=== PATIENT | male | born 1970 | race African-American/Black ===

== ENCOUNTER → 2018-09-10 | Outpatient (CLI) | payer OTHER ==
--- NOTE | 2018-09-10 08:59 | RAD ---
3 views left knee 09/10/2018 12:00 AM Indication: Knee pain. Possible patellar tendinitis Comparison: None Findings: There is no acute fracture or dislocation. Articular surfaces are uninterrupted and smooth. There is an enthesophyte at the insertion of the patellar tendon on the superior patella noted. Soft tissues are unremarkable. Impression: 1. No evidence of acute osseous abnormality. 2. Enthesophyte at the insertion of the patellar tendon on the superior patella. This is of uncertain clinical significance. Correlate with clinical evidence of patellar enthesopathy Electronically signed by: Asaf Mercer MD (09/10/2018 8:56 AM) [id number]
== END | disposition home or self-care (01) ==
LOC: DXRAD 07:33
PROVIDERS: ATTEND Physician Assistant Medical
DX: M76.52 Patellar tendinitis, left knee (principal); M76.892 Other specified enthesopathies of left lower limb, excluding foot
CPT/HCPCS: 73562

== ENCOUNTER 2019-04-27 18:20 | Emergency (ER) | payer OTHER ==
[~2019-04-27] VITALS: Ht 190.5 cm; Wt 91.9 kg
[2019-04-27] MEDS ORDERED: IV RINGERS SOLUTION,LACTATED 1,000 ML IV SCH (18:24)
[2019-04-27] MEDS ORDERED: ASPIRIN 81 MG TAB.CHEW PO ONE (18:30)
[2019-04-27] MEDS ORDERED: FAMOTIDINE 20 MG/2 ML VIAL IVP ONE (18:30)
[2019-04-27 18:54] LABS: BASO # 0.1 x10^3/uL (0.0-0.2); BASO % 1 % (0-3); EOS # 0.1 x10^3/uL (0.0-0.7); EOS % 2 % (0-3); HEMATOCRIT 46.7 % (39.0-53.0); HEMOGLOBIN 14.6 g/dL (13.0-17.5); LYMPH # 3.3 x10^3/uL (1.0-4.8); LYMPH % 52 % (24-48); MEAN CORPUSCULAR HEMOGLOBIN 21 pg (25-35); MEAN CORPUSCULAR HGB CONC 31 g/dL (31-37); MEAN CORPUSCULAR VOLUME 66 fL (79-100); MONO # 0.6 x10^3/uL (0.0-1.1); MONO % 9 % (0-9); NEUT # 2.3 x10^3uL (1.8-7.7); NEUT % 37 % (31-73); PLATELET COUNT 240 x10^3/uL (140-400); RED BLOOD COUNT 7.08 x10^6/uL (4.30-5.70); RED CELL DISTRIBUTION WIDTH 16.7 % (11.5-14.5); WHITE BLOOD COUNT 6.3 x10^3/uL (4.0-11.0)
--- NOTE | 2019-04-27 19:04 | PHYS DOC ---
Past History Past Medical History: Anemia, Diabetes, GERD Past Surgical History: No Surgical History Additional Smoking Information: PACK/DAY Alcohol Use: Rarely Adult General Chief Complaint Chief Complaint: WEAKNESS/GENERALIZED'.. I messed my meals.. I drank a spite.. feel a little better.. just emmanuel weak.. and dizzy.. " HPI HPI Patient is a 48 year old male who presents with above hx and complaints of generalized weakness. Pt. is know diabetic and smoker. Recent change in diabetic meds.. Pt. did missed regular meals to day. No travel or specific ill contacts follows with Kathryn for care. Pt. does continue to smoke. Review of Systems Review of Systems Constitutional: Denies fever or chills [] Eyes: Denies change in visual acuity, redness, or eye pain [] HENT: Denies nasal congestion or sore throat [] Respiratory: Denies cough or shortness of breath [] Cardiovascular: No additional information not addressed in HPI [] GI: Denies abdominal pain, , vomiting, bloody stools or diarrhea []Complaints of nausea : Denies dysuria or hematuria [] Musculoskeletal: Denies back pain or joint pain [] Integument: Denies rash or skin lesions [] Neurologic: Denies headache, focal weakness or sensory changes []Complaints of generalized weakness Endocrine: Denies polyuria or polydipsia [] All other systems were reviewed and found to be within normal limits, except as documented in this note. Family History Family History DM Current Medications Current Medications Current Medications Medications (Trade) Dose Ordered Sig/Bogdan Start Time Stop Time Status Last Admin Dose Admin Aspirin (Children'S Aspirin) 324 mg 1X ONCE 04/27/19 18:30 04/27/19 18:31 DC Famotidine (Pepcid Vial) 20 mg 1X ONCE 04/27/19 18:30 04/27/19 18:31 DC Lactated Ringer's 1,000 ml @ 1,000 mls/hr Q1H 04/27/19 18:24 04/27/19 19:23 Allergies Allergies Allergies Coded Allergies Type Severity Reaction Last Updated Verified No Known Drug Allergies 04/27/19 No Physical Exam Physical Exam Constitutional: Mild distress, non-toxic appearance. [] HENT: Normocephalic, atraumatic, bilateral external ears normal, oropharynx dry, no oral exudates, nose normal. [] Eyes: PERRLA, EOMI, conjunctiva normal, no discharge. [] Neck: Normal range of motion, no tenderness, supple, no stridor. [] Cardiovascular: Tachycardia Heart rate regular rhythm, no murmur [] Lungs & Thorax: Bilateral breath sounds clear to auscultation [] Abdomen: Bowel sounds normal, soft, no tenderness, no masses, no pulsatile masses. [] Skin: Warm, dry, no erythema, no rash. [] Back: No tenderness, no CVA tenderness. [] Extremities: No tenderness, no cyanosis, no clubbing, ROM intact, no edema. [] Neurologic: Alert and oriented X 3, normal motor function, normal sensory function, no focal deficits noted. []DTRs +2 patella and brachial. No drift. Supervisor Yard equal. Right-hand dominant. Psychologic: Affect anxious, judgement normal, mood normal. [] Current Patient Data Vital Signs Vital Signs Date Time Temp Pulse Resp B/P (MAP) Pulse Ox O2 Delivery O2 Flow Rate FiO2 04/27/19 18:20 97.8 82 20 153/91 (111) 97 Room Air EKG EKG My interpretation EKG shows a sinus rhythm at 85 bpm. No findings of acute morphology with STEMI. with contralateral changes.[] Radiology/Procedures Radiology/Procedures [[address] [address] IMAGING REPORT Signed PATIENT: TRENTON AGUILLON ACCOUNT: [id number] : 1970 LOCATION: ER AGE: 48 SEX: M EXAM STATUS: REG ER ORD. PHYSICIAN: NICOLE MATAMOROS MD REASON: dizzy, weak, numbness PROCEDURE: CT HEAD WO CONTRAST Exam: CT head INDICATION: Dizzy, weak, numbness TECHNIQUE: Sequential axial images through the head were obtained without the administration of IV contrast. Comparisons: None FINDINGS: No focal parenchymal lesion or hemorrhage is identified. There is no midline shift or sulcal effacement. No acute vascular territory infarction is identified. Michele-white distinction is preserved. The ventricular system is within normal limits without compression hydrocephalus. The basal cisterns are well maintained. The visualized portions of the paranasal sinuses and mastoid air cells are well-pneumatized. No acute fractures. IMPRESSION: No acute intracranial abnormality. Exposure: One or more of the following in the visualized dose reduction techniques were utilized for this examination: 1. Automated exposure control 2. Adjustment of the MA and/or KV according to patient size Use of iterative of reconstructive technique Electronically signed by: Nnamdi Hollis MD (04/27/2019 7:32 PM) [id number] DICTATED AND SIGNED BY: NNAMDI HOLLIS MD DATE: 04/27/191931 CC: NICOLE MATAMOROS MD; EILEEN SIBLEY ~][place] [address] IMAGING REPORT Signed PATIENT: TRENTON AGUILLON ACCOUNT: [id number] : 1970 LOCATION: ER AGE: 48 SEX: M EXAM STATUS: REG ER ORD. PHYSICIAN: NICOLE MATAMOROS MD REASON: ??dizzy PROCEDURE: CHEST PA & LATERAL EXAM: CHEST PA LATERAL INDICATION: Dizziness. TECHNIQUE: PA and lateral views COMPARISON: None FINDINGS: The heart size is normal. The great vessels appear unremarkable. There is no hilar or mediastinal mass. The lungs are clear. There is no pleural effusion or pneumothorax. There are no significant osseous abnormalities. Mild left diaphragmatic elevation. IMPRESSION: No active cardiopulmonary disease. Electronically signed by: Namrata Bettencourt MD (04/27/2019 7:42 PM) [facility] DICTATED AND SIGNED BY: NAMRATA BETTENCOURT MD DATE: 04/27/191941 CC: NICOLE MATAMOROS MD; EILEEN SIBLEY ~ Course & Med Decision Making Course & Med Decision Making Pertinent Labs and Imaging studies reviewed. (See chart for details) Patient take a daily baby aspirin. Patient take diabetic meds as scheduled times. Patient take meals at scheduled times. Patient take multivitamin with iron. Patient follow-up primary care. Patient return if any concerns. Patient strongly encouraged to stop smoking. Pt declines admission at this time. Impression: 1. Weakness 2. Dizziness 3. Diabetes 4. Tobacco use 5. Mild dehydration 6. Hypoglycemic episode 7. Microcytic hypochromic indices 8. Suspect pt had hypoglycemic episode. [] Dragon Disclaimer Dragon Disclaimer This electronic medical record was generated, in whole or in part, using a voice recognition dictation system. Departure Departure: Disposition: 01 HOME/RESIDENCE PRIOR TO ADM Condition: STABLE Referrals: EILEEN SIBLEY (PCP) Dragon Disclaimer This chart was dictated in whole or in part using Voice Recognition software in a busy, high-work load, and often noisy Emergency Department environment. It may contain unintended and wholly unrecognized errors or omissions. Dragon Disclaimer This chart was dictated in whole or in part using Voice Recognition software in a busy, high-work load, and often noisy Emergency Department environment. It may contain unintended and wholly unrecognized errors or omissions. NICOLE MATAMOROS MD Apr 27, 2019 19:04
[2019-04-27 19:07] VITALS: BP 128/83
[2019-04-27 19:07] LABS: ANION GAP 13 (6-14); BLOOD UREA NITROGEN 16 mg/dL (8-26); CALCIUM 9.8 mg/dL (8.5-10.1); CARBON DIOXIDE 26 mmol/L (21-32); CHLORIDE 101 mmol/L (98-107); CREATININE 1.1 mg/dL (0.7-1.3); GFR 87.2; GLUCOSE 123 mg/dL (70-99); POTASSIUM 4.2 mmol/L (3.5-5.1); SODIUM 140 mmol/L (136-145)
[2019-04-27 19:19] LABS: ALBUMIN 4.5 g/dL (3.4-5.0); ALK PHOS 88 U/L (46-116); ALT (SGPT) 44 U/L (16-63); AST (SGOT) 26 U/L (15-37); DIRECT BILIRUBIN 0.1 mg/dL (0.0-0.2); HYPOCHROMIA MOD; LIPASE 139 U/L (73-393); PLT ESTIMATE ADEQUATE (ADEQUATE); TOTAL BILIRUBIN 0.7 mg/dL (0.2-1.0); TOTAL PROTEIN 8.5 g/dL (6.4-8.2)
[2019-04-27 19:20] LABS: MICROCYTOSIS MOD
[2019-04-27 19:24] LABS: BARBITURATES NEG (NEG); BENZODIAZEPINES NEG (NEG); BILIRUBIN,URINE NEG (NEG); CANNABINOIDS NEG (NEG); CLARITY,URINE CLEAR; COCAINE NEG (NEG); COLOR,URINE YELLOW; GLUCOSE,URINE >=1000 mg/dL (NEG); METHADONE NEG (NEG); NITRITE,URINE NEG (NEG); OPIATES NEG (NEG); PHENCYCLIDINE NEG (NEG); RBC,URINE OCC /HPF (0-2); UROBILINOGEN,URINE 0.2 mg/dL (0.2 mg/dL); WBC,URINE OCC /HPF (0-4)
[2019-04-27 19:25] LABS: BACTERIA,URINE 0 /HPF (0-FEW); SQUAMOUS EPITHELIAL CELL,UR OCC /LPF
[2019-04-27 19:30] LABS: AMPHETAMINE/METHAMPHETAMINE NEG (NEG)
--- NOTE | 2019-04-27 19:35 | RAD ---
Exam: CT head INDICATION: Dizzy, weak, numbness TECHNIQUE: Sequential axial images through the head were obtained without the administration of IV contrast. Comparisons: None FINDINGS: No focal parenchymal lesion or hemorrhage is identified. There is no midline shift or sulcal effacement. No acute vascular territory infarction is identified. Michele-white distinction is preserved. The ventricular system is within normal limits without compression hydrocephalus. The basal cisterns are well maintained. The visualized portions of the paranasal sinuses and mastoid air cells are well-pneumatized. No acute fractures. IMPRESSION: No acute intracranial abnormality. Exposure: One or more of the following in the visualized dose reduction techniques were utilized for this examination: 1. Automated exposure control 2. Adjustment of the MA and/or KV according to patient size Use of iterative of reconstructive technique Electronically signed by: Nnamdi Fuller MD (04/27/2019 7:32 PM) [id number]
--- NOTE | 2019-04-27 19:45 | RAD ---
EXAM: CHEST PA LATERAL INDICATION: Dizziness. TECHNIQUE: PA and lateral views COMPARISON: None FINDINGS: The heart size is normal. The great vessels appear unremarkable. There is no hilar or mediastinal mass. The lungs are clear. There is no pleural effusion or pneumothorax. There are no significant osseous abnormalities. Mild left diaphragmatic elevation. IMPRESSION: No active cardiopulmonary disease. Electronically signed by: Harry Bettencourt MD (04/27/2019 7:42 PM) [facility]
[2019-04-27 19:58] LABS: SEDIMENTATION RATE 3 (0-15)
[2019-04-27 20:03] LABS: INFLUENZA A PATIENT NEGATIVE (NEGATIVE); INFLUENZA B PATIENT NEGATIVE (NEGATIVE)
[2019-04-27] MEDS ORDERED: ASPIRIN 325 MG TABLET PO ONE (20:15)
--- NOTE | 2019-04-28 00:55 | EKG ---
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
[2019-04-28 16:45] LABS: THYROID STIM HORMONE (TSH) 0.782 uIU/mL (0.358-3.740)
== END 2019-04-27 20:40 | disposition home or self-care (01) ==
LOC: ER 18:20
DX: R53.1 Weakness (principal); R42 Dizziness and giddiness; E11.9 Type 2 diabetes mellitus without complications; E86.0 Dehydration; D50.9 Iron deficiency anemia, unspecified; F17.210 Nicotine dependence, cigarettes, uncomplicated; K21.9 Gastro-esophageal reflux disease without esophagitis
CPT/HCPCS: 36415; 70450; 71046; 80048; 80061; 80076; 80307; 81001; 82550; 83690; 83735; 83880; 84443; 84484; 85025; 85379; 85610; 85651; 85730; 87070; 87804; 87880; 93005; 96361; 96374; 99285; J3490; J7120

== ENCOUNTER 2019-05-06 16:50 | Emergency (ER) | payer OTHER ==
[~2019-05-06] VITALS: Ht 190.5 cm; Wt 91.9 kg
--- NOTE | 2019-05-06 17:55 | PHYS DOC ---
Past History Past Medical History: Anemia, Diabetes, GERD, Other Additional Past Medical Histor: NEUROPATHY (ELLIE HOBBS DO) Past Surgical History: No Surgical History (ELLIE HOBBS DO) Alcohol Use: Rarely (ELLIE HOBBS DO) Adult General Chief Complaint Chief Complaint: CHEST PAIN-NON CARDIAC NATURE HPI HPI Patient is a male who was brought here from home by EMS due to feeling anxiety, chest pressure, feeling shaky and weak all over started around noon today. Patient has history of diabetes, he is on metformin. Patient checked his blood sugar at home today and it was 125. Patient denied any headache, no fever, no cough. Patient was evaluated here on April 27, 2019 for the same problem. Patient had no history of coronary artery disease, no recent travel, no recent operation. Patient had no previous history of blood clot disorder. He is a smoker. (ELLIE HOBBS DO) Review of Systems Review of Systems Constitutional: Denies fever or chills [] Eyes: Denies change in visual acuity, redness, or eye pain [] HENT: Denies nasal congestion or sore throat [] Respiratory: Denies cough or shortness of breath [] Cardiovascular: No additional information not addressed in HPI [] GI: Denies abdominal pain, nausea, vomiting, bloody stools or diarrhea [] : Denies dysuria or hematuria [] Musculoskeletal: Denies back pain or joint pain [] Integument: Denies rash or skin lesions [] Neurologic: Denies headache, focal weakness or sensory changes [] Endocrine: Denies polyuria or polydipsia [] All other systems were reviewed and found to be within normal limits, except as documented in this note. (ELLIE HOBBS DO) Allergies Allergies Allergies Coded Allergies Type Severity Reaction Last Updated Verified No Known Drug Allergies 04/27/19 No (ELLIE HOBBS DO) Physical Exam Physical Exam Constitutional: Well developed, well nourished, no acute distress, non-toxic appearance. [] HENT: Normocephalic, atraumatic, bilateral external ears normal, oropharynx moist, no oral exudates, nose normal. [] Eyes: PERRLA, EOMI, conjunctiva normal, no discharge. [] Neck: Normal range of motion, no tenderness, supple, no stridor. [] Cardiovascular:Heart rate regular rhythm, no murmur [] Lungs & Thorax: Bilateral breath sounds clear to auscultation [] Abdomen: Bowel sounds normal, soft, no tenderness, no masses, no pulsatile masses. [] Skin: Warm, dry, no erythema, no rash. [] Back: No tenderness, no CVA tenderness. [] Extremities: No tenderness, no cyanosis, no clubbing, ROM intact, no edema. [] Neurologic: Alert and oriented X 3, normal motor function, normal sensory function, no focal deficits noted. [] Psychologic: Affect normal, judgement normal, mood normal. [] (ELLIE HOBBS DO) Current Patient Data Vital Signs Vital Signs Date Time Temp Pulse Resp B/P (MAP) Pulse Ox O2 Delivery O2 Flow Rate FiO2 05/06/19 16:50 98.0 93 20 124/79 (94) 99 Room Air (ELLIE HOBBS DO) EKG EKG EKG done at 1727, sinus rhythm rate of 89 beats per minute, no ST segment elevation. (ELLIE HOBBS DO) Radiology/Procedures Radiology/Procedures [] (ELLIE HOBBS DO) Radiology/[place] [address] IMAGING REPORT Signed PATIENT: TRENTON AGUILLON ACCOUNT: [id number] : 1970 LOCATION: ER AGE: 48 SEX: M EXAM STATUS: REG ER ORD. PHYSICIAN: ELLIE HOBBS DO REASON: chest pain PROCEDURE: PORTABLE CHEST 1V PORTABLE CHEST 1V INDICATION: Chest pain. COMPARISON STUDY: 04/27/2019. FINDINGS: Lungs: Normal lung volume. No pulmonary mass or consolidation. The tracheobronchial tree and hilar structures are normal. Pleura: No pleural effusion or pneumothorax. Heart and Mediastinum: The cardiomediastinal silhouette is normal. The great vessels of the thorax are normal. IMPRESSION: No acute cardiopulmonary process. Electronically signed by: Hilton Martin MD (05/06/2019 6:03 PM) [id number] DICTATED AND SIGNED BY: HILTON MARTIN MD DATE: 05/06/19 180 CC: ELLIE HOBBS DO; EILEEN SIBLEY ~ (NICOLE MATAMOROS MD) Course & Med Decision Making Course & Med Decision Making Pertinent Labs and Imaging studies reviewed. (See chart for details) [] (ELLIE HOBBS DO) Course & Med Decision Making Impression: 1. Chest Pain- appears to be noncardiac possibly GERD 2. Anxiety 3. Microcytic hypochromic indices [id number] 4. Elevated lymphocytes 52 5. History reflux Patient to take Zantac 150 mg twice day. Follow-up primary care. Consider stress testing. Take a daily aspirin. Return if any concerns currently patient declines admission for further cardiac testing. Must follow-up primary care review ED work up. (NICOLE MATAMOROS MD) Dragon Disclaimer Dragon Disclaimer This electronic medical record was generated, in whole or in part, using a voice recognition dictation system. (ELLIE HOBBS DO) Departure Departure: Impression: Primary Impression: Anxiety Disposition: HOME, SELF-CARE Condition: STABLE Referrals: EILEEN SIBLEY (PCP) Scripts Ranitidine Hcl (ZANTAC) 150 Mg Tablet 150 MG PO BID for gerd for 30 Days, #60 TAB Prov: NICOLE MATAMOROS MD 05/06/19 HEART Score for Chest Pain PTs The HEART Score for CP Pts HEART Score for Chest Pain: HEART Score for Chest Pain Response (Comments) Value History Slighlty/Non-Suspicious 0 ECG Normal 0 Age >45 - < 65 1 Risk Factors 1 or 2 Risk Factors 1 Troponin < Normal Limit 0 Total 2 Risk Factors: Risk Factors: DM, Current or recent (<one month) smoker, HTN, HLP, family history of CAD, obesity. Risk Scores: Score 0 - 3: 2.5% MACE over next 6 weeks - Discharge Home Score 4 - 6: 20.3% MACE over next 6 weeks - Admit for Clinical Observation Score 7 - 10: 72.7% MACE over next 6 weeks - Early Invasive Strategies (ELLIE HOBBS DO) NIHSS - ED NIH Stroke Scale: NIH Stroke Scale Response (Comments) Value Level of Consciousness: 0 Alert/Responsive 0 LOC Questions: 0 Answers both correctly 0 LOC Commands: 0 Performs both tasks 0 Best Gaze: 0 Normal 0 Visual: 0 No visual loss 0 Facial Palsy: 0 Normal, symmetrical 0 Motor - Left Arm 0 No drift 0 Motor - Right Arm 0 No drift 0 Motor - Left Leg 0 No drift 0 Motor: Right Leg 0 No drift 0 Limb Ataxia: 0 Absent 0 Best Language: 0 Normal 0 Dysathria: 0 Normal 0 Extinction and Inattention: 0 Normal 0 Total 0 Dragon Disclaimer This chart was dictated in whole or in part using Voice Recognition software in a busy, high-work load, and often noisy Emergency Department environment. It may contain unintended and wholly unrecognized errors or omissions. (NICOLE MATAMOROS MD) Dragon Disclaimer This chart was dictated in whole or in part using Voice Recognition software in a busy, high-work load, and often noisy Emergency Department environment. It may contain unintended and wholly unrecognized errors or omissions. (ELLIE HOBBS DO) ELLIE HOBBS DO May 06, 2019 17:55 NICOLE MATAMOROS MD May 06, 2019 18:36
--- NOTE | 2019-05-06 18:06 | RAD ---
PORTABLE CHEST 1V INDICATION: Chest pain. COMPARISON STUDY: 04/27/2019. FINDINGS: Lungs: Normal lung volume. No pulmonary mass or consolidation. The tracheobronchial tree and hilar structures are normal. Pleura: No pleural effusion or pneumothorax. Heart and Mediastinum: The cardiomediastinal silhouette is normal. The great vessels of the thorax are normal. IMPRESSION: No acute cardiopulmonary process. Electronically signed by: Abel Martin MD (05/06/2019 6:03 PM) [id number]
[2019-05-06 18:35] LABS: CALCIUM 9.6 mg/dL (8.5-10.1); CREATININE 1.1 mg/dL (0.7-1.3); GFR 87.2; POTASSIUM 4.1 mmol/L (3.5-5.1)
[2019-05-06 18:43] LABS: BASO % 1 % (0-3); EOS # 0.1 x10^3/uL (0.0-0.7); EOS % 1 % (0-3); HEMATOCRIT 41.7 % (39.0-53.0); HEMOGLOBIN 13.1 g/dL (13.0-17.5); LYMPH # 2.5 x10^3/uL (1.0-4.8); LYMPH % 38 % (24-48); MEAN CORPUSCULAR HEMOGLOBIN 21 pg (25-35); MEAN CORPUSCULAR HGB CONC 31 g/dL (31-37); MEAN CORPUSCULAR VOLUME 66 fL (79-100); MONO # 0.7 x10^3/uL (0.0-1.1); MONO % 10 % (0-9); NEUT # 3.3 x10^3uL (1.8-7.7); NEUT % 50 % (31-73); PLATELET COUNT 212 x10^3/uL (140-400); RED BLOOD COUNT 6.32 x10^6/uL (4.30-5.70); RED CELL DISTRIBUTION WIDTH 16.8 % (11.5-14.5); WHITE BLOOD COUNT 6.6 x10^3/uL (4.0-11.0)
[2019-05-06 18:44] LABS: CLARITY,URINE CLEAR; COLOR,URINE YELLOW
[2019-05-06 18:45] LABS: BACTERIA,URINE 0 /HPF (0-FEW); BILIRUBIN,URINE NEG (NEG); GLUCOSE,URINE NEG (NEG); NITRITE,URINE NEG (NEG); RBC,URINE 0 /HPF (0-2); SQUAMOUS EPITHELIAL CELL,UR OCC /LPF; UROBILINOGEN,URINE 0.2 mg/dL (0.2 mg/dL); WBC,URINE 0 /HPF (0-4)
[2019-05-06 18:48] LABS: ALBUMIN 4.1 g/dL (3.4-5.0); ALBUMIN/GLOBULIN RATIO 1.2 (1.0-1.7); TOTAL BILIRUBIN 0.3 mg/dL (0.2-1.0); TOTAL PROTEIN 7.6 g/dL (6.4-8.2)
--- NOTE | 2019-05-06 18:58 | EKG ---
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
[2019-05-06] MEDS ORDERED: RANI-376 PO (19:19)
[2019-05-06 19:29] LABS: HYPOCHROMIA MOD; MICROCYTOSIS MOD; OVALOCYTES FEW; PLT ESTIMATE ADEQUATE (ADEQUATE); SCHISTOCYTES OCC; TEAR DROP CELLS OCC
[2019-05-06] MEDS ORDERED: MAGNESIUM HYDROXIDE 2,400 MG/30 ML ORAL.SUSP. PO ONE (19:30)
[2019-05-06] MEDS ORDERED: FAMOTIDINE 20 MG TABLET PO ONE (19:30)
[2019-05-06 19:35] VITALS: BP 124/80
== END 2019-05-06 19:35 | disposition home or self-care (01) ==
LOC: ER 16:50
DX: F41.9 Anxiety disorder, unspecified (principal); R07.9 Chest pain, unspecified; K21.9 Gastro-esophageal reflux disease without esophagitis; E11.9 Type 2 diabetes mellitus without complications
CPT/HCPCS: 36415; 71045; 80053; 81001; 83735; 83880; 84484; 85025; 85610; 85730; 93005; 99285

== ENCOUNTER → 2019-05-09 | Outpatient (CLI) | payer OTHER ==
[2019-05-06 19:35] VITALS: BP 124/80
[~2019-05-09] MED LIST: RANI-376 PO
--- NOTE | 2019-05-10 12:21 | RAD ---
Bilateral lower extremity arterial ultrasound History: Peripheral artery disease, bilateral leg fatigue, leg pain Findings: Multiple grayscale, color, and duplex spectral analysis sonographic images were acquired of the lower extremity arteries bilaterally. There are no previous similar exams. Arterial vasculature of the lower extremities bilaterally is patent on grayscale images without definite or significant plaque. Triphasic waveforms bilaterally are seen. Velocities in cm/sec: RIGHT Common femoral artery 125 Profunda femoris artery 73 Proximal SFA 94 Mid SFA 96 Distal SFA 78 Popliteal artery 40 Anterior tibial artery 53 Dorsalis pedis artery 50 Posterior tibial artery 44 Peroneal artery 65 LEFT: Common femoral artery 103 Profunda femoris artery 63 Proximal SFA 93 Mid SFA 89 Distal SFA 68 Popliteal artery 46 Anterior tibial artery 51 Dorsalis pedis artery 38 Posterior tibial artery 43 Peroneal artery 70 Impression: The lower extremity arterial vasculature is normal. No significant focal stenosis is identified. Electronically signed by: Attila Do MD (05/10/2019 12:18 PM) [facility]
== END | disposition home or self-care (01) ==
LOC: US 14:35
PROVIDERS: ATTEND Family Medicine
DX: I73.9 Peripheral vascular disease, unspecified (principal)
CPT/HCPCS: 93925

== ENCOUNTER → 2019-05-13 | Outpatient (CLI) | payer OTHER ==
[2019-05-06 19:35] VITALS: BP 124/80
--- NOTE | 2019-05-13 11:31 | RAD ---
Thyroid ultrasound HISTORY: Thyroid nodules. COMPARISON: None are available FINDINGS: Right thyroid: Measures 6.2 x 2.5 x 2.1 cm. Homogeneous vascularity. No focal mass is identified. Isthmus: Measures 4 mm thickness. Left thyroid: Measures 7.3 x 2.9 x 3.1 cm. Homogeneous vascularity. Large complex mass at the inferior left thyroid measures 4.4 x 2.8 x 3.1 cm with internal vascularity. This is mostly solid, with mild cystic component. Another MID lobe lesion measures 9 x 10 x 8 mm, mostly solid with small cystic component and mild vascularity. IMPRESSION: 1. There are 2 concerning nodules in the left thyroid with mostly solid nature and internal vascularity, largest measuring 4.4 cm. This could be amenable to FNA. 2. Borderline thyromegaly. Electronically signed by: Braulio Luz MD (05/13/2019 11:28 AM) [id number]
== END ==
LOC: US 10:51
PROVIDERS: ATTEND Family Medicine
DX: E01.0 Iodine-deficiency related diffuse (endemic) goiter (principal)
CPT/HCPCS: 76536

== ENCOUNTER 2019-05-15 14:12 | Emergency (ER) | payer OTHER ==
[~2019-05-15] VITALS: Ht 190.5 cm; Wt 91.9 kg
[2019-05-15 14:35] VITALS: BP 138/95
--- NOTE | 2019-05-15 14:42 | PHYS DOC ---
Past History Past Medical History: Anemia, Diabetes, GERD, Other Additional Past Medical Histor: NEUROPATHY Past Surgical History: No Surgical History Alcohol Use: Rarely Adult General Chief Complaint Chief Complaint: BLOOD SUGAR PROBLEM HPI HPI 48-year-old male with history of pzk-sgoaosc-pggpdsvva diabetes mellitus on metformin, who presents for evaluation of hyperglycemia. The patient is checking his blood sugars closely as of late. His most recent fingerstick was 250 at home. No prior history of DKA or HHS. Patient is currently on treatment with clarithromycin, amoxicillin, pantoprazole for the management of H. pylori. Today is Day 2 of treatment. He reports several weeks of develop epigastric pain, prio r to his diagnosis of H. pylori. No prior abdominal surgeries. Has an appointment with gastroenterology next Monday. The patient otherwise has no acute medical complaints. Review of Systems Review of Systems General: No fevers, chills. Eyes: No blurred vision, diplopia. ENT: No nasal congestion, sore throat. CV: No chest pain, edema. Resp: No shortness of breath, cough. GI: No vomiting. Reports ongoing epigastric discomfort, intermittent nausea. Endocrine: No polyuria, polydipsia. Reports hyperglycemia. : No dysuria, hematuria. Neuro: No headache, dizziness. MSK: No myalgia, arthralgia. Skin: No acute rash, lesion. All other systems were reviewed and found to be within normal limits, except as documented in this note. Allergies Allergies Allergies Coded Allergies Type Severity Reaction Last Updated Verified No Known Drug Allergies 04/27/19 No Physical Exam Physical Exam Gen: NAD. Head: NC/AT Eyes: No scleral icterus. No conjunctival injection. ENT: MMM. Posterior OP clear. Neck: Supple. NT. CV: RRR. Peripheral pulses intact. Resp: CTAB. Abd: Soft. NT. ND. No flank TTP. MSK: No peripheral cyanosis. No edema. Neuro: Awake and alert. Skin: Warm. Dry. Psych: Appropriate mood & affect. Current Patient Data Lab Results Laboratory Tests Test 05/15/19 14:29 05/15/19 14:35 Glucose (Fingerstick) 183 mg/dL (70-99) H White Blood Count 10.7 x10^3/uL (4.0-11.0) Red Blood Count 6.72 x10^6/uL (4.30-5.70) H Hemoglobin 14.2 g/dL (13.0-17.5) Hematocrit 44.6 % (39.0-53.0) Mean Corpuscular Volume 66 fL (79-100) L Mean Corpuscular Hemoglobin 21 pg (25-35) L Mean Corpuscular Hemoglobin Concent 32 g/dL (31-37) Red Cell Distribution Width 16.9 % (11.5-14.5) H Platelet Count 237 x10^3/uL (140-400) Neutrophils (%) (Auto) 85 % (31-73) H Lymphocytes (%) (Auto) 13 % (24-48) L Monocytes (%) (Auto) 2 % (0-9) Eosinophils (%) (Auto) 0 % (0-3) Basophils (%) (Auto) 1 % (0-3) Neutrophils # (Auto) 9.1 x10^3uL (1.8-7.7) H Lymphocytes # (Auto) 1.3 x10^3/uL (1.0-4.8) Monocytes # (Auto) 0.2 x10^3/uL (0.0-1.1) Eosinophils # (Auto) 0.0 x10^3/uL (0.0-0.7) Basophils # (Auto) 0.0 x10^3/uL (0.0-0.2) Sodium Level 136 mmol/L (136-145) Potassium Level 3.6 mmol/L (3.5-5.1) Chloride Level 100 mmol/L (98-107) Carbon Dioxide Level 25 mmol/L (21-32) Anion Gap 11 (6-14) Blood Urea Nitrogen 13 mg/dL (8-26) Creatinine 1.2 mg/dL (0.7-1.3) Estimated GFR (Cockcroft-Gault) 78.9 BUN/Creatinine Ratio 11 (6-20) Glucose Level 171 mg/dL (70-99) H Calcium Level 9.2 mg/dL (8.5-10.1) Magnesium Level 1.8 mg/dL (1.8-2.4) Total Bilirubin 0.5 mg/dL (0.2-1.0) Aspartate Amino Transferase (AST) 13 U/L (15-37) L Alanine Aminotransferase (ALT) 32 U/L (16-63) Alkaline Phosphatase 80 U/L (46-116) Total Protein 8.3 g/dL (6.4-8.2) H Albumin 4.3 g/dL (3.4-5.0) Albumin/Globulin Ratio 1.1 (1.0-1.7) Lipase 119 U/L (73-393) Laboratory Tests Test 05/15/19 14:29 Glucose (Fingerstick) 183 mg/dL (70-99) H EKG EKG [] Radiology/Procedures Radiology/Procedures [] Course & Med Decision Making Course & Med Decision Making Pertinent Labs and Imaging studies reviewed. (See chart for details) In summary, 48-year-old male with qtr-lcpwhin-ecdigsaep diabetes mellitus, who presents for evaluation of mild hyperglycemia in the 250s at home, found to be 171 here on lab work without evidence of DKA or HHS. The patient has several weeks of ongoing epigastric discomfort, though was recently diagnosed with H. pylori, currently on day 2 of treatment, and his current discomfort is unlikely emergent give the chronicity and known diagnosis. Remains well appearing and nontoxic. Provided with reassurance. Will DC home with continuation of metformin and previously prescribed H. pylori meds. PMD F/U. Return precautions given. Dragon Disclaimer Dragon Disclaimer This electronic medical record was generated, in whole or in part, using a voice recognition dictation system. Departure Departure: Impression: Primary Impression: Hyperglycemia Additional Impression: Gastritis Disposition: HOME, SELF-CARE Condition: STABLE Referrals: JOSE MIRZA MD (PCP) Problem Qualifiers Additional Impression: Gastritis Gastritis type: unspecified gastritis Chronicity: unspecified Gastritis bleeding: presence of bleeding unspecified Qualified Codes: K29.70 - Gastritis, unspecified, without bleeding MATILDA CHARLES DO May 15, 2019 14:42
[2019-05-15 14:58] LABS: BASO % 1 % (0-3); EOS % 0 % (0-3); HEMATOCRIT 44.6 % (39.0-53.0); HEMOGLOBIN 14.2 g/dL (13.0-17.5); LYMPH # 1.3 x10^3/uL (1.0-4.8); LYMPH % 13 % (24-48); MEAN CORPUSCULAR HEMOGLOBIN 21 pg (25-35); MEAN CORPUSCULAR HGB CONC 32 g/dL (31-37); MEAN CORPUSCULAR VOLUME 66 fL (79-100); MONO # 0.2 x10^3/uL (0.0-1.1); MONO % 2 % (0-9); NEUT # 9.1 x10^3uL (1.8-7.7); NEUT % 85 % (31-73); PLATELET COUNT 237 x10^3/uL (140-400); RED BLOOD COUNT 6.72 x10^6/uL (4.30-5.70); RED CELL DISTRIBUTION WIDTH 16.9 % (11.5-14.5); WHITE BLOOD COUNT 10.7 x10^3/uL (4.0-11.0)
[2019-05-15 15:01] LABS: CALCIUM 9.2 mg/dL (8.5-10.1); CREATININE 1.2 mg/dL (0.7-1.3); GFR 78.9; POTASSIUM 3.6 mmol/L (3.5-5.1)
[2019-05-15 15:08] LABS: ALBUMIN 4.3 g/dL (3.4-5.0); ALBUMIN/GLOBULIN RATIO 1.1 (1.0-1.7); MAGNESIUM 1.8 mg/dL (1.8-2.4); TOTAL BILIRUBIN 0.5 mg/dL (0.2-1.0); TOTAL PROTEIN 8.3 g/dL (6.4-8.2)
[2019-05-15] MEDS ORDERED: LIDO:MAALOX 1:1 20 ML SINGLE DOSE. PO ONE (15:15)
[2019-05-15 16:13] LABS: PLT ESTIMATE ADEQUATE (ADEQUATE)
[2019-05-15 16:14] LABS: BURR CELLS PRESENT; OVALOCYTES PRESENT; TARGET CELLS PRESENT
[2019-05-15 16:18] LABS: HYPOCHROMIA SLIGHT
[2019-05-15 16:19] LABS: MICROCYTOSIS SLIGHT
== END 2019-05-15 15:21 | disposition home or self-care (01) ==
LOC: ER 14:12
DX: E11.65 Type 2 diabetes mellitus with hyperglycemia (principal); K29.70 Gastritis, unspecified, without bleeding; K21.9 Gastro-esophageal reflux disease without esophagitis; Z86.2 Personal history of diseases of the blood and blood-forming organs and certain disorders involving the immune mechanism
CPT/HCPCS: 36415; 80053; 82947; 83690; 83735; 85025; 99283

== ENCOUNTER 2019-06-11 18:29 | Emergency (ER) | payer OTHER ==
[~2019-06-11] VITALS: Ht 190.5 cm; Wt 91.2 kg
[2019-06-11 18:29] VITALS: BP 138/95
--- NOTE | 2019-06-11 18:36 | PHYS DOC ---
Past History Past Medical History: Anemia, Diabetes, GERD, Other Additional Past Medical Histor: NEUROPATHY Past Surgical History: No Surgical History Alcohol Use: Rarely Adult General Chief Complaint Chief Complaint: ABDOMINAL PAIN... " I am having reallly bad abd. pain.. here in pit of my stomach.. and now Lt sided.... I was diagnosed with H. pylori by blood..test. Dr. Kyle... put me on antibiotics for it...".." I did all the antibiotics.. but I still have pain unless I take that pain med... (Hydrocodone)..and I am still on anti acids. .." HPI HPI Patient is a 48 year old [facility] male who presents with above hx and complaints of abd. pain. Pt. has been in country [place]. No recent travel outside of [place] area. Pt. hx . dx. of H Pyloric by blood test. by . Past hx of Neuropathy, Anemia, DM, GERD. Pt. follows with Dr. Kyle. Patient states when he eats he feels better. No history of bad food. No problems with defecation or history of colitis with him or family members. No history of trauma. Review of Systems Review of Systems Constitutional: Denies fever or chills [] Eyes: Denies change in visual acuity, redness, or eye pain [] HENT: Denies nasal congestion or sore throat [] Respiratory: Denies cough or shortness of breath [] Cardiovascular: No additional information not addressed in HPI [] GI: Denies abdominal pain, nausea, vomiting, bloody stools or diarrhea [] : Denies dysuria or hematuria [] Musculoskeletal: Denies back pain or joint pain [] Integument: Denies rash or skin lesions [] Neurologic: Denies headache, focal weakness or sensory changes [] Endocrine: Denies polyuria or polydipsia [] All other systems were reviewed and found to be within normal limits, except as documented in this note. Family History Family History Noncontributory to presentation Current Medications Current Medications See nursing for home meds Allergies Allergies Allergies Coded Allergies Type Severity Reaction Last Updated Verified No Known Drug Allergies 04/27/19 No Physical Exam Physical Exam Constitutional: Well developed, well nourished, moderate acute distress, non- toxic appearance. [] HENT: Normocephalic, atraumatic, bilateral external ears normal, oropharynx moist, no oral exudates, nose normal. [] Eyes: PERRLA, EOMI, conjunctiva normal, no discharge. [] Neck: Normal range of motion, no tenderness, supple, no stridor. [] Cardiovascular:Heart rate regular rhythm, no murmur [] Lungs & Thorax: Bilateral breath sounds at apexes to auscultation [] Abdomen: Bowel sounds hyperactive active, soft, complaints of epigastric, no masses, no pulsatile masses. [] Declines rectal exam at this time. Mild rebound to right upper quadrant. Abdomen distended. Skin: Warm, dry, no erythema, no rash. [] Back: No tenderness, no CVA tenderness. [] Extremities: No tenderness, no cyanosis, no clubbing, ROM intact, no edema. [] Neurologic: Alert and oriented X 3, normal motor function, normal sensory function, no focal deficits noted. []No psoas sign. Psychologic: Affect anxious, judgement normal, mood normal. [] EKG EKG My interpretation EKG shows a sinus rhythm at 78 bpm. No finding to acute morphology[] Radiology/Procedures Radiology/Procedures [][place] [id number] IMAGING REPORT Signed PATIENT: TRENTON AGUILLON ACCOUNT: [id number] : 1970 LOCATION: ER AGE: 48 SEX: M EXAM STATUS: REG ER ORD. PHYSICIAN: NICOLE MATAMOROS MD REASON: Mid abdomen pain, nausea, hx H pyloric, on meds PROCEDURE: ACUTE ABDOMEN SERIES Study: CR ACUTE ABDOMEN SERIES Indication: Mid abdominal pain. Nausea. Comparison: 05/06/2019 chest radiograph Findings: No interval change in the appearance of the chest from 05/06/2021 to include mild asymmetric elevation of the left hemidiaphragm. Nonobstructive bowel gas pattern. Mild to moderate constipation. The lower aspect of the right hepatic lobe approaches the iliac crest. No free air seen under the diaphragm. Chronic, ovoid focus of mineralization projecting above the right greater trochanter. Impression: 1. Mild to moderate constipation. Nonobstructive bowel gas pattern. 2. Unremarkable radiographic appearance of the chest. Electronically signed by: KALINA CORONADO MD (06/11/2019 8:47 PM) [id number] DICTATED AND SIGNED BY: KALINA CORONADO MD DATE: 06/11/192046 CC: NICOLE MATAMOROS MD; JOSE KYLE MD ~ Course & Med Decision Making Course & Med Decision Making Pertinent Labs and Imaging studies reviewed. (See chart for details) To stay on a clear fluid diet only for the next 2 days. No solids or milk products. Must allow bowel rest. Expect episode diarrhea by morning. Take Tylenol as needed for pain. Follow-up primary care. Can continue antacids. Follow-up ED workup with primary. Persistent pain we'll need a reexam of possible CT scan. Patient advised may need EGD and colonoscopy at some point if no improvement. Consider EGD for H. pylori biopsy. Impression: 1. Abdomen pain 2. Constipation 3. GERD/gastritis 4. Has microcytic hyperchromic indices 5. History of H. pylori- Note there may be omissions or duplications of record. Computer shut down during workup patient and documentation. [] Dragon Disclaimer Dragon Disclaimer This electronic medical record was generated, in whole or in part, using a voice recognition dictation system. Departure Departure: Disposition: 01 HOME/RESIDENCE PRIOR TO ADM Condition: STABLE Referrals: JOSE KYLE MD (PCP) Scripts Lansoprazole (PREVACID) 30 Mg Capsule.dr 30 MG PO DAILY for gastritis, gerd for 30 Days, #30 CAP Prov: NICOLE MATAMOROS MD 06/11/19 Dragon Disclaimer This chart was dictated in whole or in part using Voice Recognition software in a busy, high-work load, and often noisy Emergency Department environment. It may contain unintended and wholly unrecognized errors or omissions. NICOLE MATAMOROS MD Jun 11, 2019 18:36
[2019-06-11] MEDS ORDERED: IV RINGERS SOLUTION,LACTATED 1,000 ML IV SCH (18:57)
[2019-06-11] MEDS ORDERED: FAMOTIDINE 20 MG/2 ML VIAL IVP ONE (19:00)
[2019-06-11] MEDS ORDERED: MAGNESIUM HYDROXIDE 2,400 MG/30 ML ORAL.SUSP. PO ONE (19:00)
[2019-06-11] MEDS ORDERED: ONDANSETRON PF 4 MG/2 ML VIAL. IVP ONE (19:00)
[2019-06-11] MEDS ORDERED: FAMOTIDINE 20 MG/2 ML VIAL ONE (19:08)
[2019-06-11] MEDS ORDERED: MAGNESIUM HYDROXIDE 2,400 MG/30 ML ORAL.SUSP. ONE (19:08)
[2019-06-11 19:38] LABS: BASO # 0.1 x10^3/uL (0.0-0.2); BASO % 1 % (0-3); EOS # 0.1 x10^3/uL (0.0-0.7); EOS % 2 % (0-3); HEMATOCRIT 41.9 % (39.0-53.0); HEMOGLOBIN 13.4 g/dL (13.0-17.5); LYMPH # 2.5 x10^3/uL (1.0-4.8); LYMPH % 35 % (24-48); MEAN CORPUSCULAR HEMOGLOBIN 22 pg (25-35); MEAN CORPUSCULAR HGB CONC 32 g/dL (31-37); MEAN CORPUSCULAR VOLUME 67 fL (79-100); MONO # 0.6 x10^3/uL (0.0-1.1); MONO % 9 % (0-9); NEUT # 3.8 x10^3uL (1.8-7.7); NEUT % 54 % (31-73); PLATELET COUNT 219 x10^3/uL (140-400); RED BLOOD COUNT 6.26 x10^6/uL (4.30-5.70); RED CELL DISTRIBUTION WIDTH 16.8 % (11.5-14.5); WHITE BLOOD COUNT 7.1 x10^3/uL (4.0-11.0)
[2019-06-11 19:49] LABS: CALCIUM 9.6 mg/dL (8.5-10.1); CREATININE 1.2 mg/dL (0.7-1.3); GFR 78.9; POTASSIUM 3.7 mmol/L (3.5-5.1)
[2019-06-11 20:05] LABS: ALBUMIN 4.1 g/dL (3.4-5.0); DIRECT BILIRUBIN 0.1 mg/dL (0.0-0.2); TOTAL BILIRUBIN 0.5 mg/dL (0.2-1.0); TOTAL PROTEIN 7.6 g/dL (6.4-8.2)
[2019-06-11 20:20] LABS: BARBITURATES NEG (NEG); BENZODIAZEPINES NEG (NEG); CANNABINOIDS NEG (NEG); COCAINE NEG (NEG); METHADONE NEG (NEG); OPIATES NEG (NEG); PHENCYCLIDINE NEG (NEG)
[2019-06-11 20:23] LABS: BILIRUBIN,URINE NEG (NEG); CLARITY,URINE CLEAR; COLOR,URINE STRAW; GLUCOSE,URINE NEG (NEG); NITRITE,URINE NEG (NEG); RBC,URINE 0 /HPF (0-2); UROBILINOGEN,URINE 0.2 mg/dL (0.2 mg/dL); WBC,URINE 0 /HPF (0-4)
[2019-06-11 20:24] LABS: BACTERIA,URINE 0 /HPF (0-FEW); SQUAMOUS EPITHELIAL CELL,UR OCC /LPF
[2019-06-11 20:26] LABS: AMPHETAMINE/METHAMPHETAMINE NEG (NEG)
--- NOTE | 2019-06-11 20:50 | RAD ---
Study: CR ACUTE ABDOMEN SERIES Indication: Mid abdominal pain. Nausea. Comparison: 05/06/2019 chest radiograph Findings: No interval change in the appearance of the chest from 05/06/2021 to include mild asymmetric elevation of the left hemidiaphragm. Nonobstructive bowel gas pattern. Mild to moderate constipation. The lower aspect of the right hepatic lobe approaches the iliac crest. No free air seen under the diaphragm. Chronic, ovoid focus of mineralization projecting above the right greater trochanter. Impression: 1. Mild to moderate constipation. Nonobstructive bowel gas pattern. 2. Unremarkable radiographic appearance of the chest. Electronically signed by: KALINA CORONADO MD (06/11/2019 8:47 PM) [id number]
[2019-06-11 20:51] LABS: ANISOCYTOSIS SLIGHT; HYPOCHROMIA SLIGHT; MICROCYTOSIS SLIGHT; OVALOCYTES OCC; PLT ESTIMATE ADEQUATE (ADEQUATE)
[2019-06-11 21:35] LABS: INFLUENZA A PATIENT NEGATIVE (NEGATIVE); INFLUENZA B PATIENT NEGATIVE (NEGATIVE)
[2019-06-11] MEDS ORDERED: LANS30CA66 PO (21:38)
[2019-06-11] MEDS ORDERED: MAGNESIUM CITRATE 296 ML SOLUTION. PO ONE (21:45)
--- NOTE | 2019-06-11 23:41 | EKG ---
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
== END 2019-06-11 21:50 | disposition home or self-care (01) ==
LOC: ER 18:29
DX: K59.00 Constipation, unspecified (principal); D50.9 Iron deficiency anemia, unspecified; E11.40 Type 2 diabetes mellitus with diabetic neuropathy, unspecified; K21.9 Gastro-esophageal reflux disease without esophagitis; Z86.2 Personal history of diseases of the blood and blood-forming organs and certain disorders involving the immune mechanism
CPT/HCPCS: 36415; 74022; 80048; 80076; 80307; 81001; 82150; 82550; 82947; 83690; 84484; 85025; 85045; 85610; 85730; 87070; 87804; 87880; 93005; 96374; 96375; 99285; J2405; J3490; J7120

== ENCOUNTER → 2019-06-14 | Outpatient (CLI) | payer OTHER ==
[2019-06-11 18:29] VITALS: BP 138/95
[~2019-06-14] MED LIST changes: +LANS30CA66 PO
--- NOTE | 2019-06-14 09:05 | RAD ---
Examination: Ultrasound abdomen limited HISTORY: History of right upper quadrant pain COMPARISON: None available FINDINGS: The visualized pancreas grossly appears unremarkable. The gallbladder wall thickness measures 1.5 mm. Minimal pericholecystic fluid identified. Minimal sludge identified within the gallbladder. The liver length measures 16.5 cm. The right kidney measures 10.9 x 4.4 x 4.2 cm. The IVC, aorta within normal limits of dimension. IMPRESSION: 1. Minimal gallbladder sludge. 2. Trace pericholecystic fluid, uncertain etiology. Electronically signed by: Sreedhar Brooks MD (06/14/2019 9:02 AM) [id number]
== END ==
LOC: US 07:57
PROVIDERS: ATTEND Family Medicine
DX: K82.8 Other specified diseases of gallbladder (principal)
CPT/HCPCS: 76705

== ENCOUNTER → 2019-06-26 | Outpatient (CLI) | payer OTHER ==
[2019-06-11 18:29] VITALS: BP 138/95
[~2019-06-26] MED LIST changes: +ALPR0.5T PO; +ASPI-630 PO; +DICY20TA3 PO; +IRON1TAB PO; +MELA1TAB9 PO; +METF500T16 PO; +METH-38 PO; +MULT-245 PO; +OLME20TA17 PO; +OMEG1CAP50 PO; +RIFA550T4 PO; +SERT50TA PO; +SINCALIDE 1.81 MCG in IV NORMAL SALINE 50ML 30 ML IV ONE; +SUCR1TAB PO; +UBID10CA5 PO; +VITA1TAB19 PO; +ZINC50TA39 PO
--- NOTE | 2019-06-26 10:05 | RAD ---
EXAM: Nuclear hepatobiliary scan. HISTORY: Pain. TECHNIQUE: Following intravenous administration of 5.5 mCi Tc 99m Choletec, anterior images of the abdomen were obtained at five minute intervals through one hour. Subsequently, 1.81 mcg Kinevac was administered and additional images to assess gallbladder ejection fraction were obtained. FINDINGS: There is prompt radiotracer uptake by the liver. No focal defect is seen. There is normal excretion into the biliary tree. The gallbladder is visualized within 10 minutes and there is free flow into the duodenum. The gallbladder ejection fraction is 41 percent. IMPRESSION: Normal radionuclide biliary scan. Electronically signed by: Magda Ibarra MD (06/26/2019 10:02 AM) [facility]
== END ==
LOC: NM 07:30
PROVIDERS: ATTEND Family Medicine
DX: R10.11 Right upper quadrant pain (principal)
CPT/HCPCS: 78227; A9537; J2805

== ENCOUNTER 2019-07-04 13:55 | Emergency (ER) | payer OTHER ==
[~2019-07-04] VITALS: Ht 190.5 cm; Wt 91.2 kg
[~2019-07-04 13:55] MED LIST changes: -ALPR0.5T PO; -ASPI-630 PO; -DICY20TA3 PO; -IRON1TAB PO; -MELA1TAB9 PO; -METF500T16 PO; -METH-38 PO; -MULT-245 PO; -OLME20TA17 PO; -OMEG1CAP50 PO; -RIFA550T4 PO; -SERT50TA PO; -SINCALIDE 1.81 MCG in IV NORMAL SALINE 50ML 30 ML IV ONE; -SUCR1TAB PO; -UBID10CA5 PO; -VITA1TAB19 PO; -ZINC50TA39 PO
--- NOTE | 2019-07-04 14:25 | EKG ---
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
--- NOTE | 2019-07-04 14:31 | RAD ---
CHEST PA LATERAL History: Chest pain Comparison: June 11, 2019 Findings: 2 views of the chest are submitted. There is no infiltrate, pneumothorax, or effusion. Pericardial cardiac silhouette is within normal limits in size. There is again mild superior thoracic levoscoliosis. Impression: 1. There is no radiographic evidence of acute cardiopulmonary disease. Electronically signed by: Abel Ch MD (07/04/2019 2:28 PM) [id number]
[2019-07-04 14:50] LABS: HEMATOCRIT 43.8 % (39.0-53.0); RED BLOOD COUNT 6.52 x10^6/uL (4.30-5.70); RED CELL DISTRIBUTION WIDTH 16.4 % (11.5-14.5); WHITE BLOOD COUNT 6.1 x10^3/uL (4.0-11.0)
[2019-07-04 14:59] LABS: CALCIUM 9.8 mg/dL (8.5-10.1); CREATININE 1.2 mg/dL (0.7-1.3); GFR 78.9; POTASSIUM 3.9 mmol/L (3.5-5.1)
[2019-07-04 15:15] VITALS: BP 132/68
[2019-07-04] MEDS ORDERED: METH-38 PO (15:30)
--- NOTE | 2019-07-04 15:30 | PHYS DOC ---
Past History Past Medical History: Anemia, Diabetes, GERD, Other Additional Past Medical Histor: NEUROPATHY, H-pyloric Past Surgical History: No Surgical History Alcohol Use: Rarely Adult General Chief Complaint Chief Complaint: UPPER EXTREMITY PAIN HPI HPI Patient is a 48 year old male who presents with left shoulder pain. He states that it is possible he slept on it wrong. He has been having a lot of gas and belching due to his H. pylori. He denies any chest pain or shortness of breath. He denies any cough or URI symptoms. He is never had cardiac issues in the past. Review of Systems Review of Systems General: Denies fever, chills, sweats, fatigue Eyes: Denies drainage, blurred vision HENT: Denies rhinorrhea, sore throat Respiratory: Denies cough, shortness of breath, wheezing Cardiac: Denies edema, palpitations, chest pain GI: Denies abdominal pain, N/V MSK: Denies back pain, neck pain Skin: Denies rash, jaundice Neuro: Denies headache, dizziness Psychiatric: Denies SI/HI All other systems were reviewed and found to be within normal limits, except as documented in this note. Allergies Allergies Allergies Coded Allergies Type Severity Reaction Last Updated Verified No Known Drug Allergies 04/27/19 No Physical Exam Physical Exam Constitutional: Well developed, well nourished, Cooperative, NAD, non-toxic appearing HEENT: Normocephalic, atraumatic, oropharynx moist, EOMI, PERRL, no drainage from eyes, normal conjunctiva Neck: Supple, normal range of motion, no stridor Cardiovascular: RRR, 2+ radial pulses bilaterally, no edema Respiratory: CTA bilaterally, no respiratory distress, no wheezing/crackles Abdomen: Soft, nontender, nondistended, no masses Skin: Warm, dry, intact Extremities: No obvious deformities, normal range of motion in bilateral shoulders, tenderness in the posterior left shoulder Neurologic: Alert and Oriented x3, motor and sensory function grossly normal, no focal deficits Psychologic: Normal affect, normal judgment, normal mood. No SI/HI Current Patient Data Vital Signs Vital Signs Date Time Temp Pulse Resp B/P (MAP) Pulse Ox O2 Delivery O2 Flow Rate FiO2 07/04/19 14:03 98.1 80 18 128/83 (98) 99 Room Air Lab Results Laboratory Tests Test 07/04/19 14:33 White Blood Count 6.1 x10^3/uL (4.0-11.0) Red Blood Count 6.52 x10^6/uL (4.30-5.70) H Hemoglobin 14.0 g/dL (13.0-17.5) Hematocrit 43.8 % (39.0-53.0) Mean Corpuscular Volume 67 fL (79-100) L Mean Corpuscular Hemoglobin 22 pg (25-35) L Mean Corpuscular Hemoglobin Concent 32 g/dL (31-37) Red Cell Distribution Width 16.4 % (11.5-14.5) H Platelet Count 223 x10^3/uL (140-400) Sodium Level 140 mmol/L (136-145) Potassium Level 3.9 mmol/L (3.5-5.1) Chloride Level 100 mmol/L (98-107) Carbon Dioxide Level 29 mmol/L (21-32) Anion Gap 11 (6-14) Blood Urea Nitrogen 16 mg/dL (8-26) Creatinine 1.2 mg/dL (0.7-1.3) Estimated GFR (Cockcroft-Gault) 78.9 Glucose Level 99 mg/dL (70-99) Calcium Level 9.8 mg/dL (8.5-10.1) Troponin I Quantitative < 0.017 ng/mL (0-0.055) EKG EKG EKG shows normal sinus rhythm without signs of STEMI or arrhythmia [] Radiology/Procedures Radiology/Procedures Chest x-ray normal [] Course & Med Decision Making Course & Med Decision Making Pertinent Labs and Imaging studies reviewed. (See chart for details) Patient is a 48-year-old male who presents to the emergency room with left shoulder pain. Cardiac work-up was ordered and was negative. Patient does not need a delta troponin as he has had this pain for the last 6 hours. It is more likely that this is a muscle strain. He will be treated with Robaxin. Patient does not have any symptoms to suggest that the novel coronavirus 19. Patient's test results and vitals while in the ED were fully reviewed and discussed with the patient. Patient is stable and at this time does not need admission to the hospital. We have discussed strict return precautions and the importance of following up with their Primary Care Physician. Patient stated understanding and was given an opportunity to ask any questions. Dragon Disclaimer Silvia Disclaimer This electronic medical record was generated, in whole or in part, using a voice recognition dictation system. Departure Departure: Impression: Primary Impression: Shoulder pain Additional Impression: Muscle strain Disposition: HOME, SELF-CARE Condition: STABLE Referrals: JOSE MIRZA MD (PCP) Patient Instructions: Chest Pain (Nonspecific) Scripts Methocarbamol (ROBAXIN-750) 750 Mg Tablet 1 TAB PO BID PRN for PAIN for 30 Days, #20 TAB 0 Refills Prov: MAINOR FRANCOIS MD 07/04/19 Problem Qualifiers MAINOR FRANCOIS MD Jul 04, 2019 15:30
== END 2019-07-04 15:40 | disposition home or self-care (01) ==
LOC: ER 13:55
DX: S46.912A Strain of unspecified muscle, fascia and tendon at shoulder and upper arm level, left arm, initial encounter (principal); K21.9 Gastro-esophageal reflux disease without esophagitis; E11.40 Type 2 diabetes mellitus with diabetic neuropathy, unspecified; Z86.2 Personal history of diseases of the blood and blood-forming organs and certain disorders involving the immune mechanism; X50.9XXA Other and unspecified overexertion or strenuous movements or postures, initial encounter; Y93.89 Activity, other specified; Y92.89 Other specified places as the place of occurrence of the external cause; Y99.8 Other external cause status
CPT/HCPCS: 36415; 71046; 80048; 84484; 85027; 93005; 99285

== ENCOUNTER 2019-07-24 20:52 | Emergency (ER) | payer OTHER ==
[~2019-07-24] VITALS: Ht 190.5 cm; Wt 88.4 kg
[2019-07-24 20:52] VITALS: BP 126/86
[~2019-07-24 20:52] MED LIST changes: +METH-38 PO
--- NOTE | 2019-07-24 21:02 | PHYS DOC ---
Past History Past Medical History: Anemia, Diabetes, GERD, Other Additional Past Medical Histor: NEUROPATHY, H-pyloric Past Medical History Microcytic/hypochromic Past Surgical History Thyroid removal 1/2 Alcohol Use: Rarely General Adult HPI: HPI: "I ve been here a couple times... I think...I seen you in May... but I just feel tired, gas, weak, and shaky."... My stomach's upset like bad GERD.. I have already been told I have IBS and GERD with gastritis. "..." I am having so much gas...." Patient is a 48 year old male who presents with above hx and complaints of gas, feeling weak and shaky. The pt. hx. of IBS, constipation, ERIC D, gastritis, microcytic hypochromic indices, history of positive H. pylori test. Patient evaluated on 07/04/2019 in ED and 06/11/19, Pt. follows with Dr. Kyle. Patient has completed an upper GI and lower GI. Was given a diagnosis of gastritis, GERD, IBS.. Patient denies any recent travel outside [facility]. Patient denies any specific ill contacts. Patient denies any intake of bad food. Patient denies any trauma. Review of Systems: Review of Systems: Constitutional: Denies fever or chills Eyes: Denies change in visual acuity HENT: Denies nasal congestion or sore throat Respiratory: Denies cough or shortness of breath Cardiovascular: Denies chest pain or edema GI: Complains of gas abdominal pain, nausea,. Denies vomiting, bloody stools or diarrhea : Denies dysuria Musculoskeletal: Denies back pain or joint pain Integument: Denies rash Neurologic: Denies headache, focal weakness or sensory changes . Complaints of generalized weakness and shakiness Endocrine: Denies polyuria or polydipsia Lymphatic: Denies swollen glands Psychiatric: Complains of anxiety Heart Score: Risk Factors: Risk Factors: DM, Current or recent (<one month) smoker, HTN, HLP, family history of CAD, obesity. Risk Scores: Score 0 - 3: 2.5% MACE over next 6 weeks - Discharge Home Score 4 - 6: 20.3% MACE over next 6 weeks - Admit for Clinical Observation Score 7 - 10: 72.7% MACE over next 6 weeks - Early Invasive Strategies Family History: Family History: Noncontributory to presentation Current Medications: Current Meds: See nursing for home meds Allergies: Allergies: Allergies Coded Allergies Type Severity Reaction Last Updated Verified No Known Drug Allergies 04/27/19 No Physical Exam: PE: Constitutional: mild acute distress, non-toxic appearance. [] HENT: Normocephalic, atraumatic, bilateral external ears normal, oropharynx moist, no oral exudates, nose normal. [] Eyes: PERRLA, EOMI, conjunctiva normal, no discharge. [] Neck: Normal range of motion, no tenderness, supple, no stridor. [] Surgery scar. (Thyroid) Cardiovascular:Heart rate regular rhythm, no murmur [] Lungs & Thorax: Bilateral breath sounds clear to auscultation [] Abdomen: Bowel sounds hyperactive, soft, mild generalized tenderness, no masses, no pulsatile masses. [] Skin: Warm, dry, no erythema, no rash. [] Back: No tenderness, no CVA tenderness. [] Extremities: No tenderness, no cyanosis, no clubbing, ROM intact, no edema. [] Neurologic: Alert and oriented X 3, normal motor function, normal sensory function, no focal deficits noted. [] Psychologic: Affect anxious judgement normal, mood normal. [] EKG: EKG: My interpretation of EKG shows a sinus rhythm at 74 bpm. No acute morphology. [] Radiology/Procedures: Radiology/Procedures: [][place] [address] IMAGING REPORT Signed PATIENT: TRENTON AGUILLON ACCOUNT: [id number] : 1970 LOCATION: ER AGE: 48 SEX: M EXAM STATUS: REG ER ORD. PHYSICIAN: NICOLE MATAMOROS MD REASON: dyspnea PROCEDURE: CHEST PA & LATERAL EXAM: PA and Lateral Views of the Chest DATE: 07/24/2019 9:20 PM INDICATION: Dyspnea COMPARISON: 07/04/2019, 05/06/2019 FINDINGS: The heart is not enlarged. Mediastinal and hilar contours are normal. No focal parenchymal airspace opacity. No pleural effusion or pneumothorax. IMPRESSION: 1. No radiographic evidence for acute cardiopulmonary process. Electronically signed by: Brock Rodriguez MD (07/24/2019 10:04 PM) [facility] DICTATED AND SIGNED BY: BROCK RODRIGUEZ MD DATE: 07/24/192203 CC: NICOLE MATAMOROS MD; JOSE KYLE MD ~ Course & Med Decision Making: Course & Med Decision Making Pertinent Labs and Imaging studies reviewed. (See chart for details) Patient take his gastritis meds as directed. Patient follow-up with Dr. Kyle. Patient review ED work-up and pending labs. with primary. Follow GERD and IBS diet as previously instructed. Return if any concerns. Push fluids. Impression: 1. Hx. IBS 2. Hx Gastritis 3. Hx. Anxiety 4. Hx. Weakness 5. Microcytic hypochromic indices [] Dragon Disclaimer: Dragon Disclaimer: This electronic medical record was generated, in whole or in part, using a voice recognition dictation system. Departure Departure: Disposition: 01 HOME/RESIDENCE PRIOR TO ADM Condition: STABLE Referrals: JOSE KYLE MD (PCP) Dragon Disclaimer This chart was dictated in whole or in part using Voice Recognition software in a busy, high-work load, and often noisy Emergency Department environment. It may contain unintended and wholly unrecognized errors or omissions. Dragon Disclaimer This chart was dictated in whole or in part using Voice Recognition software in a busy, high-work load, and often noisy Emergency Department environment. It may contain unintended and wholly unrecognized errors or omissions. NICOLE MATAMOROS MD July 24, 2019 21:02
[2019-07-24] MEDS ORDERED: IV RINGERS SOLUTION,LACTATED 1,000 ML IV SCH (21:30)
[2019-07-24 21:43] LABS: BASO # 0.1 x10^3/uL (0.0-0.2); BASO % 1 % (0-3); EOS # 0.1 x10^3/uL (0.0-0.7); EOS % 1 % (0-3); HEMATOCRIT 44.7 % (39.0-53.0); HEMOGLOBIN 14.3 g/dL (13.0-17.5); LYMPH # 4.4 x10^3/uL (1.0-4.8); LYMPH % 45 % (24-48); MEAN CORPUSCULAR HEMOGLOBIN 21 pg (25-35); MEAN CORPUSCULAR HGB CONC 32 g/dL (31-37); MEAN CORPUSCULAR VOLUME 67 fL (79-100); MONO # 0.6 x10^3/uL (0.0-1.1); MONO % 6 % (0-9); NEUT # 4.5 x10^3uL (1.8-7.7); NEUT % 47 % (31-73); PLATELET COUNT 263 x10^3/uL (140-400); RED BLOOD COUNT 6.68 x10^6/uL (4.30-5.70); RED CELL DISTRIBUTION WIDTH 16.5 % (11.5-14.5); WHITE BLOOD COUNT 9.7 x10^3/uL (4.0-11.0)
[2019-07-24 21:47] LABS: CREATININE 1.3 mg/dL (0.7-1.3); GFR 71.9; POTASSIUM 3.5 mmol/L (3.5-5.1)
[2019-07-24 21:59] LABS: ALBUMIN 4.4 g/dL (3.4-5.0); DIRECT BILIRUBIN 0.1 mg/dL (0.0-0.2); TOTAL BILIRUBIN 0.5 mg/dL (0.2-1.0); TOTAL PROTEIN 8.5 g/dL (6.4-8.2)
--- NOTE | 2019-07-24 22:07 | RAD ---
EXAM: PA and Lateral Views of the Chest DATE: 07/24/2019 9:20 PM INDICATION: Dyspnea COMPARISON: 07/04/2019, 05/06/2019 FINDINGS: The heart is not enlarged. Mediastinal and hilar contours are normal. No focal parenchymal airspace opacity. No pleural effusion or pneumothorax. IMPRESSION: 1. No radiographic evidence for acute cardiopulmonary process. Electronically signed by: Brock Griffin MD (07/24/2019 10:04 PM) JARED
[2019-07-24 22:13] LABS: % BANDS 1 % (0-9); % BASOS 1 % (0-3); % EOS 1 % (0-5); % LYMPHS 41 % (24-48); % MONOS 7 % (0-10); % SEGS 49 % (35-66); PLT ESTIMATE ADEQUATE (ADEQUATE)
[2019-07-24 22:14] LABS: HYPOCHROMIA SLIGHT
[2019-07-24 22:15] LABS: MICROCYTOSIS SLIGHT
[2019-07-24 22:22] LABS: BILIRUBIN,URINE NEG (NEG); CLARITY,URINE CLEAR; COLOR,URINE YELLOW; GLUCOSE,URINE NEG (NEG); NITRITE,URINE NEG (NEG); UROBILINOGEN,URINE 0.2 mg/dL (0.2 mg/dL)
[2019-07-24 22:29] LABS: BACTERIA,URINE FEW /HPF (0-FEW); RBC,URINE 0 /HPF (0-2); SQUAMOUS EPITHELIAL CELL,UR FEW /LPF; WBC,URINE 0 /HPF (0-4)
[2019-07-24 23:12] LABS: BARBITURATES NEG (NEG); BENZODIAZEPINES NEG (NEG); CANNABINOIDS NEG (NEG); COCAINE NEG (NEG); METHADONE NEG (NEG); OPIATES NEG (NEG); PHENCYCLIDINE NEG (NEG)
[2019-07-24 23:16] LABS: AMPHETAMINE/METHAMPHETAMINE NEG (NEG)
--- NOTE | 2019-07-26 23:09 | EKG ---
[address] [address] Test Date: 2019-07-24 Test Time: 21:56:01 Pat Name: TRENTON AGUILLON Department: Room: Gender: M Requirements Analyst: Sharlene : 1970 Requested By: NICOLE MATAMOROS Order Number: [id number] Reading MD: Measurements Intervals [place] Rate: 74 P: 56 SC: 160 QRS: 49 QRSD: 82 T: 42 QT: 384 QTc: 427 Interpretive Statements SINUS RHYTHM NORMAL ECG RI6.02 No previous ECG available for comparison
== END 2019-07-25 00:10 | disposition home or self-care (01) ==
LOC: ER 20:52
DX: K58.9 Irritable bowel syndrome, unspecified (principal); K29.70 Gastritis, unspecified, without bleeding; F41.9 Anxiety disorder, unspecified; R53.1 Weakness; E11.40 Type 2 diabetes mellitus with diabetic neuropathy, unspecified; K21.9 Gastro-esophageal reflux disease without esophagitis
CPT/HCPCS: 36415; 71046; 80048; 80076; 80307; 81001; 82550; 82947; 83690; 83735; 83880; 84443; 84484; 85007; 85025; 85379; 85610; 85730; 93005; 96360; 99285; J7120

== ENCOUNTER 2019-07-31 19:15 | Emergency (ER) | payer OTHER ==
[~2019-07-31] VITALS: Ht 190.5 cm; Wt 88.4 kg
[2019-07-31 19:29] VITALS: BP 123/90
[2019-07-31 20:25] LABS: BASO # 0.1 x10^3/uL (0.0-0.2); BASO % 1 % (0-3); EOS # 0.1 x10^3/uL (0.0-0.7); EOS % 1 % (0-3); HEMATOCRIT 44.2 % (39.0-53.0); HEMOGLOBIN 14.2 g/dL (13.0-17.5); LYMPH % 39 % (24-48); MEAN CORPUSCULAR HEMOGLOBIN 21 pg (25-35); MEAN CORPUSCULAR HGB CONC 32 g/dL (31-37); MEAN CORPUSCULAR VOLUME 66 fL (79-100); MONO # 0.6 x10^3/uL (0.0-1.1); MONO % 8 % (0-9); NEUT # 3.9 x10^3uL (1.8-7.7); NEUT % 51 % (31-73); PLATELET COUNT 241 x10^3/uL (140-400); RED BLOOD COUNT 6.69 x10^6/uL (4.30-5.70); RED CELL DISTRIBUTION WIDTH 16.2 % (11.5-14.5); WHITE BLOOD COUNT 7.6 x10^3/uL (4.0-11.0)
[2019-07-31 20:29] LABS: CALCIUM 9.9 mg/dL (8.5-10.1); CREATININE 1.1 mg/dL (0.7-1.3); GFR 87.2; POTASSIUM 3.7 mmol/L (3.5-5.1)
[2019-07-31] MEDS ORDERED: IV NORMAL SALINE 1,000ML 1,000 ML IV ONE (20:30)
[2019-07-31 20:35] LABS: ALBUMIN 4.2 g/dL (3.4-5.0); ALBUMIN/GLOBULIN RATIO 1.1 (1.0-1.7); MAGNESIUM 1.8 mg/dL (1.8-2.4); TOTAL BILIRUBIN 0.8 mg/dL (0.2-1.0); TOTAL PROTEIN 8.1 g/dL (6.4-8.2)
[2019-07-31 20:51] LABS: MICROCYTOSIS MOD; PLT ESTIMATE ADEQUATE (ADEQUATE)
[2019-07-31 20:53] LABS: ANISOCYTOSIS SLIGHT; POLYCHROMASIA SLIGHT
[2019-07-31 20:54] LABS: OVALOCYTES FEW; TEAR DROP CELLS OCC
--- NOTE | 2019-07-31 21:07 | PHYS DOC ---
Past History Past Medical History: Anemia, Diabetes, GERD, Other Additional Past Medical Histor: NEUROPATHY, H-pyloric Past Surgical History: No Surgical History Alcohol Use: Rarely General Adult EDM: Chief Complaint: WEAKNESS/GENERALIZED HPI: HPI: Patient is a 48-year-old male who presented to ER today for evaluation of generalized weakness. Patient has been in and out of the hospital in the ED multiple times since April due to GI problem. Patient also had partial thyroidectomy last month at [facility]. Patient was tested negative for COVID-19 twice. PATIENT WAS recently diagnosed with diabetes, he is on metformin. Patient came in today because he feels weak, he urinates a lot, has no energy. Patient denies any cough or fever. Patient is currently on Bentyl, Protonix.. Patient denies any diarrhea. Review of Systems: Review of Systems: Constitutional: Denies fever or chills Eyes: Denies change in visual acuity HENT: Denies nasal congestion or sore throat Respiratory: Denies cough or shortness of breath Cardiovascular: Denies chest pain or edema GI: Denies abdominal pain, nausea, vomiting, bloody stools or diarrhea : Denies dysuria Musculoskeletal: Denies back pain or joint pain Integument: Denies rash Neurologic: Denies headache, focal weakness or sensory changes Endocrine: pOSITIVE FOR polyuria or polydipsia Lymphatic: Denies swollen glands Psychiatric: Denies depression or anxiety Heart Score: Risk Factors: Risk Factors: DM, Current or recent (<one month) smoker, HTN, HLP, family history of CAD, obesity. Risk Scores: Score 0 - 3: 2.5% MACE over next 6 weeks - Discharge Home Score 4 - 6: 20.3% MACE over next 6 weeks - Admit for Clinical Observation Score 7 - 10: 72.7% MACE over next 6 weeks - Early Invasive Strategies Current Medications: Current Meds: Current Medications Medications (Trade) Dose Ordered Sig/Bogdan Start Time Stop Time Status Last Admin Dose Admin Sodium Chloride 1,000 ml @ 1,000 mls/hr 1X ONCE 07/31/19 20:30 07/31/19 21:29 07/31/19 20:30 1,000 MLS/HR Allergies: Allergies: Allergies Coded Allergies Type Severity Reaction Last Updated Verified No Known Drug Allergies 04/27/19 No Physical Exam: PE: Constitutional: Well developed, well nourished, no acute distress, non-toxic appearance. [] HENT: Normocephalic, atraumatic, bilateral external ears normal, oropharynx moist, no oral exudates, nose normal. [] Eyes: PERRLA, EOMI, conjunctiva normal, no discharge. [] Neck: Normal range of motion, no tenderness, supple, no stridor. [] Cardiovascular:Heart rate regular rhythm, no murmur [] Lungs & Thorax: Bilateral breath sounds clear to auscultation [] Abdomen: Bowel sounds normal, soft, no tenderness, no masses, no pulsatile masses. [] Skin: Warm, dry, no erythema, no rash. [] Back: No tenderness, no CVA tenderness. [] Extremities: No tenderness, no cyanosis, no clubbing, ROM intact, no edema. [] Neurologic: Alert and oriented X 3, normal motor function, normal sensory function, no focal deficits noted. [] Psychologic: Affect normal, judgement normal, mood normal. [] Current Patient Data: Labs: Laboratory Tests Test 07/31/19 20:08 White Blood Count 7.6 x10^3/uL (4.0-11.0) Red Blood Count 6.69 x10^6/uL (4.30-5.70) H Hemoglobin 14.2 g/dL (13.0-17.5) Hematocrit 44.2 % (39.0-53.0) Mean Corpuscular Volume 66 fL (79-100) L Mean Corpuscular Hemoglobin 21 pg (25-35) L Mean Corpuscular Hemoglobin Concent 32 g/dL (31-37) Red Cell Distribution Width 16.2 % (11.5-14.5) H Platelet Count 241 x10^3/uL (140-400) Neutrophils (%) (Auto) 51 % (31-73) Lymphocytes (%) (Auto) 39 % (24-48) Monocytes (%) (Auto) 8 % (0-9) Eosinophils (%) (Auto) 1 % (0-3) Basophils (%) (Auto) 1 % (0-3) Neutrophils # (Auto) 3.9 x10^3uL (1.8-7.7) Lymphocytes # (Auto) 3.0 x10^3/uL (1.0-4.8) Monocytes # (Auto) 0.6 x10^3/uL (0.0-1.1) Eosinophils # (Auto) 0.1 x10^3/uL (0.0-0.7) Basophils # (Auto) 0.1 x10^3/uL (0.0-0.2) Platelet Estimate Adequate (ADEQUATE) Polychromasia Slight Anisocytosis Slight Microcytosis Mod Tear Drop Cells Occ Ovalocytes Few Prothrombin Time 10.9 SEC (9.4-11.4) Prothrombin Time INR 1.1 (0.9-1.1) Activated Partial Thromboplast Time 27 SEC (23-33) Sodium Level 137 mmol/L (136-145) Potassium Level 3.7 mmol/L (3.5-5.1) Chloride Level 99 mmol/L (98-107) Carbon Dioxide Level 29 mmol/L (21-32) Anion Gap 9 (6-14) Blood Urea Nitrogen 8 mg/dL (8-26) Creatinine 1.1 mg/dL (0.7-1.3) Estimated GFR (Cockcroft-Gault) 87.2 BUN/Creatinine Ratio 7 (6-20) Glucose Level 113 mg/dL (70-99) H Calcium Level 9.9 mg/dL (8.5-10.1) Magnesium Level 1.8 mg/dL (1.8-2.4) Total Bilirubin 0.8 mg/dL (0.2-1.0) Aspartate Amino Transferase (AST) 16 U/L (15-37) Alanine Aminotransferase (ALT) 47 U/L (16-63) Alkaline Phosphatase 92 U/L (46-116) Total Protein 8.1 g/dL (6.4-8.2) Albumin 4.2 g/dL (3.4-5.0) Albumin/Globulin Ratio 1.1 (1.0-1.7) Vital Signs: Vital Signs Date Time Temp Pulse Resp B/P (MAP) Pulse Ox O2 Delivery O2 Flow Rate FiO2 07/31/19 19:29 98.1 76 16 123/90 (101) 99 Room Air EKG: EKG: [] Radiology/Procedures: Radiology/Procedures: [] Course & Med Decision Making: Course & Med Decision Making Pertinent Labs and Imaging studies reviewed. (See chart for details) Patient is a 48-year-old male who was evaluated in the ED due to generalized weakness, lab work did not show any acute problem. Patient was given 1 L normal saline IV bolus, he was discharged home. Dragon Disclaimer: Dragon Disclaimer: This electronic medical record was generated, in whole or in part, using a voice recognition dictation system. Departure Departure: Impression: Primary Impression: Weakness Disposition: HOME/RESIDENCE PRIOR TO ADM Condition: STABLE Referrals: JOSE MIRZA MD (PCP) PLEASE CALL YOUR DOCTOR FOR FOLLOW UP THIS WEEK Patient Instructions: Weakness Additional Instructions: Thank you for visiting our Emergency Department. We appreciate you trusting us with your care. If any additional problems come up don't hesitate to return to visit us. Please follow up with your primary care provider so they can plan additional care if needed and know about the problem that you had. If symptoms worsen come back to the Emergency Department. Any concerning symptoms that start such as chest pain, shortness of air, weakness or numbness on one side of the body, running high fevers or any other concerning symptoms return to the ER. ELLIE HOBBS DO July 31, 2019 21:07
== END 2019-07-31 21:08 | disposition home or self-care (01) ==
LOC: ER 19:15
DX: R53.1 Weakness (principal); R35.8 Other polyuria; R63.1 Polydipsia; K21.9 Gastro-esophageal reflux disease without esophagitis; E11.40 Type 2 diabetes mellitus with diabetic neuropathy, unspecified; Z86.2 Personal history of diseases of the blood and blood-forming organs and certain disorders involving the immune mechanism
CPT/HCPCS: 36415; 80053; 83735; 85025; 85610; 85730; 99283; J7030

== ENCOUNTER 2019-10-20 19:11 | Emergency (ER) | payer OTHER ==
[~2019-10-20] VITALS: Ht 190.5 cm; Wt 93.7 kg
--- NOTE | 2019-10-20 19:19 | PHYS DOC ---
Past History Past Medical History: Anemia, Diabetes, GERD, Hypertension, Other Additional Past Medical Histor: NEUROPATHY, H-pyloric Past Medical History IBS- colitis Past Surgical History: No Surgical History Alcohol Use: Rarely General Adult HPI: HPI: ".. My BP is up.. I don't want any labs... or work up just check my BP.. " Patient is a 48 year old male originally from [place] who presents with above hx and complaints of hypertension by readings at home. [place]. Patient's blood pressure at home was reading 145/103 and left arm. BP on arrival here is 150/103 left arm. Discussed patient need to follow-up with his primary care. Discussed patient need to take his blood pressure with him when he wants to compare the readings because it may change between what it was at home and what it is at his doctor's office. Patient did elect to get a clonidine patch at this time. Does not want other further work-up. Patient must follow-up with his primary care discussed options of treatment and confirmed that his BP cuff is reading correctly. Patient return if any concerns. Patient denies any changes in meds. Patient denies any travel outside the [facility] recently. No specific ill contacts. No history of immunosuppression. Does have occasional exacerbation of his irritable bowel syndrome. Hypertension does run throughout his family both on his mother and father side. Pt. follows with Dr. Mirza. Review of Systems: Review of Systems: Constitutional: Denies fever or chills Eyes: Denies change in visual acuity HENT: Denies nasal congestion or sore throat Respiratory: Denies cough or shortness of breath Cardiovascular: Denies chest pain or edema GI: Denies abdominal pain, nausea, vomiting, bloody stools or diarrhea : Denies dysuria Musculoskeletal: Denies back pain or joint pain Integument: Denies rash Neurologic: Denies headache, focal weakness or sensory changes Endocrine: Denies polyuria or polydipsia Lymphatic: Denies swollen glands Psychiatric: Denies depression or anxiety Heart Score: Risk Factors: Risk Factors: DM, Current or recent (<one month) smoker, HTN, HLP, family history of CAD, obesity. Risk Scores: Score 0 - 3: 2.5% MACE over next 6 weeks - Discharge Home Score 4 - 6: 20.3% MACE over next 6 weeks - Admit for Clinical Observation Score 7 - 10: 72.7% MACE over next 6 weeks - Early Invasive Strategies Family History: Family History: Both mother and father have hypertension Current Medications: Current Meds: See nursing for home meds Allergies: Allergies: Allergies Coded Allergies Type Severity Reaction Last Updated Verified No Known Drug Allergies 04/27/19 No Physical Exam: PE: Constitutional: Well developed, well nourished, no acute distress, non-toxic appearance. [] HENT: Normocephalic, atraumatic, bilateral external ears normal, oropharynx moist, no oral exudates, nose normal. [] Eyes: PERRLA, EOMI, conjunctiva normal, no discharge. [] Neck: Normal range of motion, no tenderness, supple, no stridor. [] Cardiovascular:Heart rate regular rhythm, no murmur [] Lungs & Thorax: Bilateral breath sounds equal apex with scattered wheezes on auscultation [] Abdomen: Bowel sounds normal, soft, no tenderness, no masses, no pulsatile masses. [] Skin: Warm, dry, no erythema, no rash. [] Back: No tenderness, no CVA tenderness. [] Extremities: No tenderness, no cyanosis, no clubbing, ROM intact, no edema. [] Neurologic: Alert and oriented X 3, normal motor function, normal sensory function, no focal deficits noted. [] DTRs +2 patellar brachial. Community Organizer equal. Is ambulatory without problem. Psychologic: Affect anxious, judgement normal, mood normal. [] EKG: EKG: [] Radiology/Procedures: Radiology/Procedures: [] Course & Med Decision Making: Course & Med Decision Making Pertinent Labs and Imaging studies reviewed. (See chart for details) Patient declining labs or further work-up. Only wished to compare his blood pressure readings here with his cuff at home. Patient did not bring his cuff w ith him. Patient is to bring his cuff with me on a follow-up with Dr. Mirza. Did place a clonidine patch 0.2 mg which he can wear until he follows up with Dr. Mirza. If hypotensive remove patch. Patient return if any concerns. Impression: 1. Hypertension [] Silvia Disclaimer: Silvia Disclaimer: This electronic medical record was generated, in whole or in part, using a voice recognition dictation system. Departure Departure: Disposition: 01 HOME/RESIDENCE PRIOR TO ADM Condition: STABLE Referrals: JOSE MIRZA MD (PCP) Justification of Admission: Justification of Admission: Justification of Admission Dx: N/A Dragon Disclaimer This chart was dictated in whole or in part using Voice Recognition software in a busy, high-work load, and often noisy Emergency Department environment. It may contain unintended and wholly unrecognized errors or omissions. NICOLE MATAMOROS MD Oct 20, 2019 19:19
[2019-10-20] MEDS ORDERED: cloNIDine TTS-2 1 PATCH PATCH TD ONE (19:30)
[2019-10-20 19:48] VITALS: BP 122/90
== END 2019-10-20 19:50 | disposition home or self-care (01) ==
LOC: ER 19:11
DX: I10 Essential (primary) hypertension (principal); E11.40 Type 2 diabetes mellitus with diabetic neuropathy, unspecified; K21.9 Gastro-esophageal reflux disease without esophagitis; K58.9 Irritable bowel syndrome, unspecified; Z86.2 Personal history of diseases of the blood and blood-forming organs and certain disorders involving the immune mechanism
CPT/HCPCS: 99283

== ENCOUNTER 2019-12-07 18:09 | Observation (INO) | payer OTHER ==
[~2019-12-07] VITALS: Ht 190.5 cm; Wt 89.5 kg
--- NOTE | 2019-12-07 18:12 | PHYS DOC ---
Past History Past Medical History: Anemia, Constipation, Diabetes, GERD, High Cholesterol, Hypertension, IBS, Other Additional Past Medical Histor: NEUROPATHY, H-pyloric Past Surgical History: No Surgical History Additional Smoking Information: Uses Juul pods instead of smoking. ( VAPE) Alcohol Use: None General Adult EDM: Chief Complaint: Palpitations HPI: HPI: "..I had another episode..where my heart was beating too..fast..." Patient is a 49 year old year [place] male who presents with above history with onset of rapid heart rate, chest discomfort, dyspnea,. Patient seen by this physician on 10/20/2019 for similar type presentation. Patient did not keep follow-up with cardiology as previously instructed. Patient has been a resident [place] for the last 20 years. Does have a history of blood pressure issues. Patient denies any change in medications. Patient denies any specific ill contacts. No recent travel outside the [place] area. Normally follows with Dr. Bo Kyle. On arrival patient's heart rates 130's-150's, but then converted to the 60s and BP in the range of 138/-90. Patient did state he still has some central chest discomfort. Patient unable to quantify level of discomfort. Patient has a history of anemia, diabetes, GERD, hypertension, neuropathy, H. pylori infection, IBS, colitis, and axiety. Pt. does smoke JUUL. Pt. monitor show a SVT 130-150's when hooked up to monitor. Appeared to have then several skipped beats, with p waves, 2: 1, 3:1 and then converted to sinus rhythm. . No return to the SVT type rhythm during rest of his ED stay. Review of Systems: Review of Systems: Constitutional: Denies fever or chills Eyes: Denies change in visual acuity HENT: Denies nasal congestion or sore throat Respiratory: Denies cough or shortness of breath Cardiovascular: Complains of chest discomfort, dysrhythmia, GI: Denies abdominal pain, nausea, vomiting, bloody stools or diarrhea . Complains of constipation : Denies dysuria Musculoskeletal: Denies back pain or joint pain Integument: Denies rash Neurologic: Denies headache, focal weakness or sensory changes Endocrine: Denies polyuria or polydipsia Lymphatic: Denies swollen glands Psychiatric: Denies depression or anxiety Heart Score: HEART Score for Chest Pain: HEART Score for Chest Pain Response (Comments) Value History Slighlty/Non-Suspicious 0 ECG Normal 0 Age >45 - < 65 1 Risk Factors 1 or 2 Risk Factors 1 Total 2 Risk Factors: Risk Factors: DM, Current or recent (<one month) smoker, HTN, HLP, family history of CAD, obesity. Risk Scores: Score 0 - 3: 2.5% MACE over next 6 weeks - Discharge Home Score 4 - 6: 20.3% MACE over next 6 weeks - Admit for Clinical Observation Score 7 - 10: 72.7% MACE over next 6 weeks - Early Invasive Strategies Family History: Family History: There is hypertension on both sides of family. Current Medications: Current Meds: See nursing for home meds Allergies: Allergies: Allergies Coded Allergies Type Severity Reaction Last Updated Verified No Known Drug Allergies 04/27/19 No Physical Exam: PE: Constitutional: Mild acute distress, non-toxic appearance. [] HENT: Normocephalic, atraumatic, bilateral external ears normal, oropharynx moist, no oral exudates, nose normal. [] Eyes: PERRLA, EOMI, conjunctiva normal, no discharge. Glasses Neck: Normal range of motion, no tenderness, supple, no stridor. [] Cardiovascular:Heart rate regular rhythm, no murmur []. PMI slightly to the left Lungs & Thorax: Bilateral breath sounds equal apex on auscultation Few sca ttered wheezes. Abdomen: Bowel sounds hyperactive, soft, no tenderness,distended, no masses, no pulsatile masses. [] Skin: Warm, dry, no erythema, no rash. [] Back: No tenderness, no CVA tenderness. [] Extremities: No tenderness, no cyanosis, no clubbing, ROM intact, no edema. [] No cording appreciated Neurologic: Alert and oriented X 3, normal motor function, normal sensory function, no focal deficits noted. [] Psychologic: Affect anxious, judgement normal, mood normal. [] EKG: EKG: My interpretation EKG shows a sinus rhythm at 72 bpm. No findings acute STEMI or contralateral changes. [] Radiology/Procedures: Radiology/Procedures: [][address] [address] IMAGING REPORT Signed PATIENT: CHANTAL AGUILLONADWO Leni ACCOUNT: [id number] : 1970 LOCATION: ER AGE: 49 SEX: M EXAM STATUS: REG ER ORD. PHYSICIAN: NICOLE MATAMOROS MD REASON: cp PROCEDURE: PORTABLE CHEST 1V EXAM: PORTABLE CHEST 1V INDICATION: Reason: cp / Spl. Instructions: / History: . TECHNIQUE: Single view COMPARISON: 07/24/2019 FINDINGS: The heart size is normal. The great vessels appear unremarkable. There is no hilar or mediastinal mass. The lungs are clear. There is no pleural effusion or pneumothorax. There are no significant osseous abnormalities. IMPRESSION: No active cardiopulmonary disease. Electronically signed by: Namrata Bettencourt MD (12/07/2019 6:45 PM) [facility] [place] DICTATED AND SIGNED BY: NAMRATA BETTENCOURT MD DATE: 12/07/191844 CC: NICOLE MATAMOROS MD; BO KYLE MD ~ Course & Med Decision Making: Course & Med Decision Making Pertinent Labs and Imaging studies reviewed. (See chart for details) Discussed presentation, testing and tx plan with Dr. Brandt-, Admit and cardiology consult. Impression: 1. Dysrhythmia-tachycardia 2. History of IBS 3. Complaints of constipation 4. Microcytic Hypochromic indicies 5. Hx HTN [] Dragon Disclaimer: Dragon Disclaimer: This electronic medical record was generated, in whole or in part, using a voice recognition dictation system. Departure Departure: Disposition: 01 HOME/RESIDENCE PRIOR TO ADM Condition: STABLE Referrals: BO KYLE MD (PCP) Justification of Admission: Justification of Admission: Justification of Admission Dx: Yes CHF: Cardiac Arrhythmias Comments: SVT Dragon Disclaimer This chart was dictated in whole or in part using Voice Recognition software in a busy, high-work load, and often noisy Emergency Department environment. It may contain unintended and wholly unrecognized errors or omissions. Dragon Disclaimer This chart was dictated in whole or in part using Voice Recognition software in a busy, high-work load, and often noisy Emergency Department environment. It may contain unintended and wholly unrecognized errors or omissions. Dragon Disclaimer This chart was dictated in whole or in part using Voice Recognition software in a busy, high-work load, and often noisy Emergency Department environment. It may contain unintended and wholly unrecognized errors or omissions. Dragon Disclaimer This chart was dictated in whole or in part using Voice Recognition software in a busy, high-work load, and often noisy Emergency Department environment. It may contain unintended and wholly unrecognized errors or omissions. NICOLE MATAMOROS MD Dec 07, 2019 18:12
[2019-12-07 18:44] LABS: BASO # 0.1 x10^3/uL (0.0-0.2); BASO % 1 % (0-3); EOS # 0.1 x10^3/uL (0.0-0.7); EOS % 1 % (0-3); HEMATOCRIT 44.2 % (39.0-53.0); HEMOGLOBIN 13.9 g/dL (13.0-17.5); LYMPH # 3.4 x10^3/uL (1.0-4.8); LYMPH % 44 % (24-48); MEAN CORPUSCULAR HEMOGLOBIN 21 pg (25-35); MEAN CORPUSCULAR HGB CONC 32 g/dL (31-37); MEAN CORPUSCULAR VOLUME 67 fL (79-100); MONO # 0.7 x10^3/uL (0.0-1.1); MONO % 9 % (0-9); NEUT # 3.6 x10^3uL (1.8-7.7); NEUT % 46 % (31-73); PLATELET COUNT 230 x10^3/uL (140-400); RED BLOOD COUNT 6.62 x10^6/uL (4.30-5.70); RED CELL DISTRIBUTION WIDTH 16.1 % (11.5-14.5); WHITE BLOOD COUNT 7.8 x10^3/uL (4.0-11.0)
[2019-12-07 18:48] LABS: CALCIUM 9.7 mg/dL (8.5-10.1); CREATININE 1.3 mg/dL (0.7-1.3); GFR 71.6; POTASSIUM 3.9 mmol/L (3.5-5.1)
--- NOTE | 2019-12-07 18:48 | RAD ---
EXAM: PORTABLE CHEST 1V INDICATION: Reason: cp / Spl. Instructions: / History: . TECHNIQUE: Single view COMPARISON: 07/24/2019 FINDINGS: The heart size is normal. The great vessels appear unremarkable. There is no hilar or mediastinal mass. The lungs are clear. There is no pleural effusion or pneumothorax. There are no significant osseous abnormalities. IMPRESSION: No active cardiopulmonary disease. Electronically signed by: Harry Bettencourt MD (12/07/2019 6:45 PM) [facility] [place]
[2019-12-07] MEDS ORDERED: SUCRALFATE 1 GM TABLET. PO ONE (19:00)
[2019-12-07] MEDS ORDERED: MAGNESIUM HYDROXIDE 2,400 MG/30 ML ORAL.SUSP. PO ONE (19:00)
[2019-12-07 19:01] LABS: ALBUMIN 4.5 g/dL (3.4-5.0); DIRECT BILIRUBIN 0.2 mg/dL (0.0-0.2); TOTAL BILIRUBIN 0.8 mg/dL (0.2-1.0); TOTAL PROTEIN 8.6 g/dL (6.4-8.2)
[2019-12-07 19:12] LABS: % LYMPHS 44 % (24-48); % MONOS 8 % (0-10); % SEGS 48 % (35-66); ANISOCYTOSIS SLIGHT; PLT ESTIMATE ADEQUATE (ADEQUATE)
[2019-12-07 19:18] LABS: BILIRUBIN,URINE NEG (NEG); CLARITY,URINE CLEAR; COLOR,URINE STRAW; GLUCOSE,URINE NEG (NEG)
[2019-12-07 19:19] LABS: NITRITE,URINE NEG (NEG); UROBILINOGEN,URINE 0.2 mg/dL (0.2 mg/dL)
[2019-12-07 19:26] LABS: AMPHETAMINE/METHAMPHETAMINE NEG (NEG); BACTERIA,URINE 0 /HPF (0-FEW); BARBITURATES NEG (NEG); BENZODIAZEPINES NEG (NEG); CANNABINOIDS NEG (NEG); COCAINE NEG (NEG); METHADONE NEG (NEG); OPIATES NEG (NEG); PHENCYCLIDINE NEG (NEG); RBC,URINE 0 /HPF (0-2); WBC,URINE 0 /HPF (0-4)
[2019-12-07] MEDS ORDERED: ACETAMINOPHEN 325 MG TABLET PO PRN (19:45)
[2019-12-07] MEDS ORDERED: ONDANSETRON PF 4 MG/2 ML VIAL. IVP PRN (19:45)
[2019-12-07] MEDS ORDERED: ASPIRIN 325 MG TABLET PO ONE (20:00)
[2019-12-07] MEDS ORDERED: ENOXAPARIN ** NOTE DOSE ** SYRINGE SQ ONE (20:00)
[2019-12-07 20:28] VITALS: BP 137/90
--- NOTE | 2019-12-07 20:50 | NUR ---
The patient, TRENTON AGUILLON, 49 y/o, M admitted by MARTHA MARES MD, to room 117, was given written information regarding hospital policies, unit procedures and contact persons. Valuables were checked and left with the patient. Pt physical needs assessed; medications and medical history discussed. Pt made comfortable. He was given hot tea and call light. Will continue to monitor.
--- NOTE | 2019-12-07 21:19 | EKG ---
[address] [address] Test Date: 2019-12-07 Test Time: 18:20:47 Pat Name: TRENTON AGUILLON Department: Room: Gender: M Manager Instrumentation: : 1970 Requested By: NICOLE MATAMOROS Order Number: [id number] Reading MD: Measurements Intervals [place] Rate: 72 P: 43 SD: 164 QRS: 31 QRSD: 94 T: 15 QT: 406 QTc: 446 Interpretive Statements SINUS RHYTHM NORMAL ECG RI6.02 No previous ECG available for comparison
[2019-12-07] MEDS ORDERED: SUCR1TAB PO (22:54)
[2019-12-07] MEDS ORDERED: DICY20TA3 PO (22:54)
[2019-12-07] MEDS ORDERED: MULT-245 PO (22:54)
[2019-12-07] MEDS ORDERED: OMEG1CAP50 PO (22:54)
[2019-12-07] MEDS ORDERED: ASPI-630 PO (22:54)
[2019-12-07] MEDS ORDERED: OLME20TA17 PO (22:54)
[2019-12-07] MEDS ORDERED: METF500T16 PO (22:54)
[2019-12-07] MEDS ORDERED: ALPR0.5T PO (22:54)
[2019-12-07] MEDS ORDERED: RIFA550T4 PO (22:54)
[2019-12-07] MEDS ORDERED: UBID10CA5 PO (22:55)
[2019-12-07] MEDS ORDERED: ZINC50TA39 PO (22:55)
[2019-12-07] MEDS ORDERED: MELA1TAB9 PO (22:55)
[2019-12-07] MEDS ORDERED: IRON1TAB PO (22:55)
[2019-12-07] MEDS ORDERED: VITA1TAB19 PO (22:55)
[2019-12-07] MEDS ORDERED: SERT50TA PO (22:57)
[2019-12-07 23:08] VITALS: BP 116/72
[2019-12-08] MEDS ORDERED: MELATONIN 3 MG TABLET PO SCH (00:45)
[2019-12-08] MEDS ORDERED: DICYCLOMINE HCL 20 MG TABLET PO PRN (00:45)
[2019-12-08] MEDS: ALPRAZolam 0.5 MG TABLET PO PRN ×2 (01:14→09:12)
[2019-12-08 06:05] VITALS: BP 117/82
[2019-12-08] MEDS ORDERED: metFORMIN 500 MG TABLET PO SCH (08:00)
[2019-12-08] MEDS ORDERED: ENOXAPARIN ** NOTE DOSE ** SYRINGE SQ SCH (09:00)
[2019-12-08] MEDS ORDERED: rifAXIMin 550 MG TABLET PO SCH (09:00)
[2019-12-08] MEDS ORDERED: ASPIRIN CHEWABLE 81 MG TABLET. PO SCH (09:00)
--- NOTE | 2019-12-08 10:25 | HP ---
ADMIT DATE: 12/07/2019 ATTENDING PHYSICIAN: Dr. Mares. CHIEF COMPLAINT: Palpitations. HISTORY OF PRESENT ILLNESS: The patient is a 49-year-old [place] gentleman who works AT [employer]. He has had significant problems with anxiety, stress at work, hypertension and rapid heart rate. He was seen by his physician 6 weeks ago with similar presentation. It appears he had a panic attack. He was scheduled to see a mammography technologist for evaluation and possibly Holter monitoring. He did never follow through. On arrival to the ED, the patient's heart rate was in the 130s, but then converted very quickly spontaneously to 60-70 per minute, blood pressure in the range of 138/90 mmHg. He had some central chest discomfort. He does use nicotine in the form of vaping. He was admitted for further treatment and evaluation and monitoring. PAST MEDICAL HISTORY: Significant for high cholesterol, hypertension, gastroesophageal reflux disease, borderline diabetes, chronic anemia and significant anxiety disorder. ALLERGIES: He has no known drug allergies. MEDICATIONS: He was scheduled to take alprazolam 0.5 mg b.i.d. as needed, Bentyl for stomach issues, Prevacid, melatonin, metformin, Robaxin, olmesartan, Xifaxan, Zoloft, Carafate, vitamin ____, and zinc. FAMILY HISTORY: Noncontributory. REVIEW OF SYSTEMS: Significant for lots of stress at work. He has been given some time off. He has other financial stressors. He denied any suicidal ideation. He has chest pain that is noncardiac in nature, abdominal pain, cramping, alternating constipation, no diarrhea. All other systems reviewed and turned to be negative. PHYSICAL EXAMINATION: GENERAL: When I saw him, this is a pleasant young gentleman. INITIAL VITAL SIGNS: Showed a blood pressure 117/82, pulse is 58 and regular, temperature 98.3 degrees Fahrenheit, oxygen saturation 100% on room air. HEENT: Head is without trauma. Pupils are reactive. Sclerae are nonicteric. Oropharynx is clear. NECK: Supple, no bruits. LUNGS: Otherwise clear. CARDIOVASCULAR: showed regular heart rate, no gallops. Peripheral pulses are palpable and full. ABDOMEN: Soft, scaphoid, nontender, no organomegaly. Bowel sounds are hypoactive. EXTREMITIES: Show no cyanosis or edema. NEUROLOGIC: Focally intact. Speech is fluent. Digital Communications Manager intact. SKIN: Warm and dry. PERTINENT LABORATORY STUDIES: The chest x-ray showed clear lung palacios, normal heart size without any acute pathology. His hemoglobin was 13.9 g/dL with white count of 7800. Cardiac enzymes negative for coronary ischemia. Electrolytes, BUN and creatinine all within normal range. Nonfasting blood sugar 94. ASSESSMENT: 1. This 49-year-old gentleman has had a panic attack. 2. Episodic tachycardia related to hyperadrenaline. 3. Essential hypertension. 4. Irritable bowel syndrome. 5. Underlying depression with anxiety. PLAN: 1. I recommended increase Xanax dose to 1 mg b.i.d. 2. Diet as tolerated. 3. Monitoring overnight. 4. Continue home meds. MARTHA MARES MD DR: MADALYN/ericka JOB#: [id number] / [id number] JOSE Patel MD
--- NOTE | 2019-12-08 10:37 | NUR ---
PATIENT IS DISCHARGED HOME WITH SELF CARE. PATIENT IS STABLE AT TIME OF DISCHARGE. PTS IV IS REMOVED AND TELE MONITOR D/C'D. PATIENT AMBULATED OFF OF UNIT ACCOMPANIED BY STAFF.
[2019-12-08 10:44] LABS: THYROID STIM HORMONE (TSH) 0.716 uIU/mL (0.358-3.740)
--- NOTE | 2019-12-08 11:46 | DS ---
DATE OF DISCHARGE: 12/08/2019 ATTENDING PHYSICIAN: Dr. Mares. FINAL DISCHARGE DIAGNOSES: 1. Palpitations. 2. Probable panic attack. 3. Underlying depression with anxiety. 4. Essential hypertension. 5. Irritable bowel syndrome. 6. Gastroesophageal reflux disease. 7. Type 2 diabetes. HISTORY OR PRESENT ILLNESS: This is a pleasant 49-year-old gentleman admitted through the ED with palpitations. He is under a lot of stress at work, he has had to take some time off. He has had some financial issues too. There is a longstanding history of depression, anxiety and irritable bowel syndrome. He was seen for a similar episode [address] Kyle recommended for Cardiology evaluation. He never followed up with the outpatient visit. At this time, I felt he had a panic attack. In the ED on arrival to the ED, heart rate was in the 130s. He converted to a sinus rhythm spontaneously. PHYSICAL EXAMINATION: Please see the dictated note. PERTINENT LABORATORY AND X-RAY STUDIES: Cardiac enzymes negative for coronary ischemia. Electrolytes, BUN and creatinine, blood sugar all within normal range. Hemoglobin is 13.9 g/dL with a white count of 7800. The 12-lead EKG showed a regular rhythm without any acute changes. Chest x-ray was entirely clear. COURSE IN THE HOSPITAL: The patient was admitted for observation. He was in a sinus rhythm. Diet was advanced. I did increase his Xanax. When I saw him, his lungs were clear. He felt better. I think that this can be managed as an outpatient. I therefore recommended that he go home and follow up with Dr. Kyle. In addition, I wrote a script for increased Xanax 1 mg b.i.d. scheduled. His other home meds are unchanged. They include the following. He should continue his Zoloft, aspirin daily, Bentyl, iron Prevacid, melatonin, metformin, Robaxin, Benicar, omega-3 fish oil, rifaximin, Carafate, vitamin D, and zinc, dose is unchanged. He had been on previous Zantac and because of the recent data and associated with the cancer, this has obviously been stopped. He will follow up with Dr. Kyle at the scheduled time. The patient was then discharged from our hospital in a stable condition with explicit instructions and followup care. MARTHA MARES MD DR: MADALYN/ericka JOB#: [id number] / [id number] JOSE Patel MD
== END 2019-12-08 10:30 | disposition home or self-care (01) ==
LOC: ER 18:09 → INTOOBSV 19:15 → 1 SOUTH 19:15 → ER 20:04
PROVIDERS: ADMIT Hospitalist; ATTEND Hospitalist
DX: R00.2 Palpitations (principal); F41.8 Other specified anxiety disorders; I10 Essential (primary) hypertension; K58.9 Irritable bowel syndrome, unspecified; K21.9 Gastro-esophageal reflux disease without esophagitis; E11.40 Type 2 diabetes mellitus with diabetic neuropathy, unspecified; I47.1 Supraventricular tachycardia; E78.00 Pure hypercholesterolemia, unspecified; D53.9 Nutritional anemia, unspecified; Z79.82 Long term (current) use of aspirin; Z79.899 Other long term (current) drug therapy
CPT/HCPCS: 36415; 71045; 80048; 80061; 80076; 80307; 81001; 82550; 82947; 83690; 83735; 83880; 84443; 84484; 85007; 85025; 85379; 85610; 85730; 93005; 96372; 99285; 99406; G0378; J1650; G0379

== ENCOUNTER → 2020-04-13 | Outpatient (CLI) | payer SELFPAY ==
[~2020-04-13] MED LIST changes: +ALPR0.5T PO; +ASPI-630 PO; +DICY20TA3 PO; +IRON1TAB PO; +MELA1TAB44 PO; +METF500T16 PO; +MULT-245 PO; +OLME20TA17 PO; +OMEG1CAP50 PO; +RIFA550T4 PO; +SERT50TA PO; +SUCR1TAB PO; +UBID10CA5 PO; +VITA1TAB19 PO; +ZINC50TA39 PO
--- NOTE | 2020-04-13 16:19 | RAD ---
AP and Lateral Views of the Chest 04/13/2020 1:50 PM Indication: Reason: HEART PALPATATION / Spl. Instructions: / History: Comparison: Chest radiograph December 07, 2019 Findings: There is no focal consolidation or infiltrate identified. The cardiomediastinal silhouette is within normal limits. There is no evidence of pneumothorax or pleural effusion. No acute osseous a bnormalities are identified. Impression: No evidence of acute cardiopulmonary process. Electronically signed by: Asaf Mercer MD (04/13/2020 4:17 PM) [id number]
== END ==
LOC: DXRAD 13:16
PROVIDERS: ATTEND Family Medicine
DX: R00.2 Palpitations (principal); R07.89 Other chest pain; E05.90 Thyrotoxicosis, unspecified without thyrotoxic crisis or storm; K58.2 Mixed irritable bowel syndrome; M62.81 Muscle weakness (generalized); E78.01 Familial hypercholesterolemia
CPT/HCPCS: 71046

== ENCOUNTER 2020-10-05 10:52 | Emergency (ER) | payer SELFPAY ==
[~2020-10-05] VITALS: Ht 190.5 cm; Wt 89.5 kg
[2020-10-05 10:52] VITALS: BP 128/84
--- NOTE | 2020-10-05 11:41 | EKG ---
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
--- NOTE | 2020-10-05 11:46 | RAD ---
INDICATION: Reason: CP / Spl. Instructions: / History: COMPARISON: April 13, 2020 FINDINGS: Single view of chest obtained. No focal airspace consolidation. Cardiomediastinal contour unremarkable. No acute osseous abnormality. IMPRESSION: * No focal airspace consolidation or edema. Electronically signed by: El Moody MD (10/05/2020 11:44 AM) [id number]
[2020-10-05] MEDS ORDERED: FAMOTIDINE 20 MG/2 ML VIAL IVP ONE (12:00)
[2020-10-05] MEDS ORDERED: PANTOPRAZOLE IV 40 MG VIAL. IVP ONE (12:00)
[2020-10-05] MEDS ORDERED: ONDANSETRON PF 4 MG/2 ML VIAL. IVP ONE (12:00)
[2020-10-05] MEDS ORDERED: LIDO:MAALOX 1:1 20 ML SINGLE DOSE. PO ONE (12:00)
[2020-10-05 12:12] LABS: BASO % 0 % (0-3); EOS # 0.1 x10^3/uL (0.0-0.7); EOS % 1 % (0-3); HEMATOCRIT 41.3 % (39.0-53.0); HEMOGLOBIN 13.4 g/dL (13.0-17.5); LYMPH # 2.5 x10^3/uL (1.0-4.8); LYMPH % 36 % (24-48); MEAN CORPUSCULAR HEMOGLOBIN 21 pg (25-35); MEAN CORPUSCULAR HGB CONC 32 g/dL (31-37); MEAN CORPUSCULAR VOLUME 65 fL (79-100); MONO # 0.6 x10^3/uL (0.0-1.1); MONO % 9 % (0-9); NEUT # 3.7 x10^3uL (1.8-7.7); NEUT % 54 % (31-73); PLATELET COUNT 235 x10^3/uL (140-400); RED BLOOD COUNT 6.39 x10^6/uL (4.30-5.70); RED CELL DISTRIBUTION WIDTH 16.5 % (11.5-14.5); WHITE BLOOD COUNT 6.9 x10^3/uL (4.0-11.0)
[2020-10-05 12:17] LABS: CALCIUM 9.8 mg/dL (8.5-10.1); CREATININE 1.2 mg/dL (0.7-1.3); GFR 78.5; POTASSIUM 4.1 mmol/L (3.5-5.1)
[2020-10-05 12:22] LABS: ALBUMIN 4.5 g/dL (3.4-5.0); ALBUMIN/GLOBULIN RATIO 1.3 (1.0-1.7); TOTAL BILIRUBIN 0.8 mg/dL (0.2-1.0); TOTAL PROTEIN 7.9 g/dL (6.4-8.2)
--- NOTE | 2020-10-05 13:24 | PHYS DOC ---
Past History Past Medical History: Anemia, Constipation, Diabetes, GERD, High Cholesterol, Hypertension, IBS, Other Additional Past Medical Histor: NEUROPATHY, H-pyloric Past Surgical History: Other Additional Past Surgical Histo: THYROID Alcohol Use: None General Adult EDM: Chief Complaint: CHEST PAIN HPI: HPI: 49-year-old male presents with chest pain. He has had a burning chest pain off and on for a couple of weeks. It is been more persistent yesterday and today. It is moderate in intensity and burning. He takes Prevacid for heartburn daily. He tells me that the pain has been radiating across his chest and into the abdomen. He denies shortness of breath or diaphoresis. He denies vomiting but has had some nausea. He also states having chronic constipation. Denies fever or chills. Review of Systems: Review of Systems: Constitutional: Denies fever or chills Eyes: Denies change in visual acuity HENT: Denies nasal congestion or sore throat Respiratory: Denies cough or shortness of breath Cardiovascular: Chest pain GI: Constipation. Denies abdominal pain, nausea, vomiting, bloody stools or diarrhea : Denies dysuria Musculoskeletal: Denies back pain or joint pain Integument: Denies rash Neurologic: Denies headache, focal weakness or sensory changes Endocrine: Denies polyuria or polydipsia Lymphatic: Denies swollen glands Psychiatric: Denies depression or anxiety Current Medications: Current Meds: Current Medications Medications (Trade) Dose Ordered Sig/Bogdan Start Time Stop Time Status Last Admin Dose Admin Famotidine (Pepcid Vial) 20 mg 1X ONCE 10/05/20 12:00 10/05/20 12:01 DC 10/05/20 12:34 20 MG Multi-Ingredient Mouthwash/Gargle (Gi Cocktail) 20 ml 1X ONCE 10/05/20 12:00 10/05/20 12:01 DC 10/05/20 12:34 20 ML Ondansetron HCl (Zofran) 4 mg 1X ONCE 10/05/20 12:00 10/05/20 12:01 DC 10/05/20 12:34 4 MG Pantoprazole Sodium (Protonix Vial) 40 mg 1X ONCE 10/05/20 12:00 10/05/20 12:01 DC 10/05/20 12:36 40 MG Allergies: Allergies: Allergies Coded Allergies Type Severity Reaction Last Updated Verified No Known Drug Allergies 2/8/20 No Physical Exam: PE: Constitutional: Well developed, well nourished, no acute distress, non-toxic appearance. [] HENT: Normocephalic, atraumatic, bilateral external ears normal, oropharynx moist, no oral exudates, nose normal. [] Eyes: PERRLA, EOMI, conjunctiva normal, no discharge. [] Neck: Normal range of motion, no tenderness, supple, no stridor. [] Cardiovascular: Heart rate 93, regular rhythm, no murmur [] Lungs & Thorax: Bilateral breath sounds clear to auscultation [] Abdomen: Bowel sounds normal, soft, no tenderness, no masses, no pulsatile masses. [] Skin: Warm, dry, no erythema, no rash. [] Back: No tenderness, no CVA tenderness. [] Extremities: No tenderness, no cyanosis, no clubbing, ROM intact, no edema. [] Neurologic: Alert and oriented X 3, normal motor function, normal sensory function, no focal deficits noted. [] Psychologic: Affect normal, judgement normal, mood normal. [] Current Patient Data: Labs: Laboratory Tests Test 10/05/20 10:54 White Blood Count 6.9 x10^3/uL (4.0-11.0) Red Blood Count 6.39 x10^6/uL (4.30-5.70) H Hemoglobin 13.4 g/dL (13.0-17.5) Hematocrit 41.3 % (39.0-53.0) Mean Corpuscular Volume 65 fL (79-100) L Mean Corpuscular Hemoglobin 21 pg (25-35) L Mean Corpuscular Hemoglobin Concent 32 g/dL (31-37) Red Cell Distribution Width 16.5 % (11.5-14.5) H Platelet Count 235 x10^3/uL (140-400) Neutrophils (%) (Auto) 54 % (31-73) Lymphocytes (%) (Auto) 36 % (24-48) Monocytes (%) (Auto) 9 % (0-9) Eosinophils (%) (Auto) 1 % (0-3) Basophils (%) (Auto) 0 % (0-3) Neutrophils # (Auto) 3.7 x10^3uL (1.8-7.7) Lymphocytes # (Auto) 2.5 x10^3/uL (1.0-4.8) Monocytes # (Auto) 0.6 x10^3/uL (0.0-1.1) Eosinophils # (Auto) 0.1 x10^3/uL (0.0-0.7) Basophils # (Auto) 0.0 x10^3/uL (0.0-0.2) Platelet Estimate Pending Sodium Level 138 mmol/L (136-145) Potassium Level 4.1 mmol/L (3.5-5.1) Chloride Level 101 mmol/L (98-107) Carbon Dioxide Level 27 mmol/L (21-32) Anion Gap 10 (6-14) Blood Urea Nitrogen 11 mg/dL (8-26) Creatinine 1.2 mg/dL (0.7-1.3) Estimated GFR (Cockcroft-Gault) 78.5 BUN/Creatinine Ratio 9 (6-20) Glucose Level 120 mg/dL (70-99) H Calcium Level 9.8 mg/dL (8.5-10.1) Total Bilirubin 0.8 mg/dL (0.2-1.0) Aspartate Amino Transferase (AST) 16 U/L (15-37) Alanine Aminotransferase (ALT) 36 U/L (16-63) Alkaline Phosphatase 80 U/L (46-116) Troponin I Quantitative < 0.017 ng/mL (0-0.055) Total Protein 7.9 g/dL (6.4-8.2) Albumin 4.5 g/dL (3.4-5.0) Albumin/Globulin Ratio 1.3 (1.0-1.7) Vital Signs: Vital Signs Date Time Temp Pulse Resp B/P (MAP) Pulse Ox O2 Delivery O2 Flow Rate FiO2 10/05/20 10:52 98.2 84 16 128/84 99 Room Air EKG: EKG: [] Radiology/Procedures: Radiology/Procedures: [] Impressions: INDICATION: Reason: CP / Spl. Instructions: / History: COMPARISON: April 13, 2020 FINDINGS: Single view of chest obtained. No focal airspace consolidation. Cardiomediastinal contour unremarkable. No acute osseous abnormality. IMPRESSION: * No focal airspace consolidation or edema. Electronically signed by: Marilee Moody MD (10/05/2020 11:44 AM) DESKTOP- [id number] DICTATED AND SIGNED BY: MARILEE MOODY MD DATE: 10/05/20 1143 CC: JUAN PABLO BUSTILLOS DO; ELLIE GLEASON MD ~MTH0 0 Heart Score: C/O Chest Pain: Yes HEART Score for Chest Pain: HEART Score for Chest Pain Response (Comments) Value History Slighlty/Non-Suspicious 0 ECG Normal 0 Age >45 - < 65 1 Risk Factors 1 or 2 Risk Factors 1 Troponin < Normal Limit 0 Total 2 Risk Factors: Risk Factors: DM, Current or recent (<one month) smoker, HTN, HLP, family history of CAD, obesity. Risk Scores: Score 0 - 3: 2.5% MACE over next 6 weeks - Discharge Home Score 4 - 6: 20.3% MACE over next 6 weeks - Admit for Clinical Observation Score 7 - 10: 72.7% MACE over next 6 weeks - Early Invasive Strategies Course & Med Decision Making: Course & Med Decision Making Pertinent Labs and Imaging studies reviewed. (See chart for details) The patient's EKG is unremarkable. His chest x-ray is unremarkable. His labs are unremarkable. His troponin is negative. I have given the patient GI cocktail, 40 mg of Protonix, and 20 mg of Pepcid IV. I believe the patient's symptoms are likely related to his GERD. I advised that he follow-up with his primary doctor to discuss more management. He should also discuss strategy for his constipation. He is stable for discharge at this time. [] Dragon Disclaimer: Dragon Disclaimer: This electronic medical record was generated, in whole or in part, using a voice recognition dictation system. Departure Departure: Impression: Primary Impression: Chest pain Qualified Codes: R07.89 - Other chest pain Additional Impression: GERD (gastroesophageal reflux disease) Qualified Codes: K21.9 - Gastro-esophageal reflux disease without esophagitis Disposition: HOME / SELF CARE / HOMELESS Condition: STABLE Referrals: ELLIE GLEASON MD (PCP) Patient Instructions: Chest Pain (Nonspecific), [id number], Gastroesophageal Reflux Disease, Adult, [id number] Scripts Sucralfate (CARAFATE) 1 Gm Tablet 1 TAB PO QID PRN for GI SYMPTOMS for 30 Days, #120 TAB 0 Refills Prov: JUAN PABLO BUSTILLOS DO 10/05/20 Hydrocodone/Acetaminophen (Hydrocodone-Acetamin 5-325 mg) 1 Each Tablet 1 EACH PO Q4-6HRS PRN for PAIN, #10 TAB Prov: JUAN PABLO BUSTILLOS DO 10/05/20 JUAN PABLO BUSTILLOS DO Oct 05, 2020 13:23
[2020-10-05] MEDS ORDERED: SUCR1TAB35 PO (13:28)
[2020-10-05] MEDS ORDERED: HYDR-2759 PO (13:28)
[2020-10-05 14:00] LABS: PLT ESTIMATE ADEQUATE (ADEQUATE)
[2020-10-05 14:01] LABS: ANISOCYTOSIS PRESENT; MICROCYTOSIS PRESENT
[2020-10-05 14:02] LABS: TARGET CELLS PRESENT
[2020-10-05 14:03] LABS: OVALOCYTES PRESENT
[2020-10-05 14:04] LABS: SCHISTOCYTES OCC
== END 2020-10-05 13:30 | disposition home or self-care (01) ==
LOC: ER 10:52
DX: K21.9 Gastro-esophageal reflux disease without esophagitis (principal); R07.89 Other chest pain; K59.00 Constipation, unspecified; E78.00 Pure hypercholesterolemia, unspecified; I10 Essential (primary) hypertension; E11.40 Type 2 diabetes mellitus with diabetic neuropathy, unspecified; Z86.2 Personal history of diseases of the blood and blood-forming organs and certain disorders involving the immune mechanism
CPT/HCPCS: 36415; 71045; 80053; 84484; 85025; 93005; 96374; 96375; 99285; C9113; J2405; J3490

== ENCOUNTER → 2021-06-17 | Emergency (ER) | payer OTHER ==
[~2021-06-17] VITALS: Ht 190.5 cm; Wt 89.5 kg
[~2021-06-17] MED LIST changes: +DICY20TA PO; -DICY20TA3 PO; +HYDR-2759 PO; +IV NORMAL SALINE 1,000ML 1,000 ML IV ONE; +KETOROLAC 15 MG/ML VIAL. IVP ONE; +LEVO750T5 PO; +SUCR1TAB35 PO; +levoFLOXacin 750 MG TABLET PO ONE
[2021-06-17 16:33] LABS: CLARITY,URINE TURBID; COLOR,URINE RED
[2021-06-17 16:34] LABS: BACTERIA,URINE 0 /HPF (0-FEW); RBC,URINE TNTC /HPF (0-2)
[2021-06-17 17:29] LABS: BASO # 0.1 x10^3/uL (0.0-0.2); BASO % 1 % (0-3); EOS # 0.1 x10^3/uL (0.0-0.7); EOS % 1 % (0-3); HEMATOCRIT 40.6 % (39.0-53.0); HEMOGLOBIN 12.8 g/dL (13.0-17.5); LYMPH # 1.6 x10^3/uL (1.0-4.8); LYMPH % 14 % (24-48); MEAN CORPUSCULAR HEMOGLOBIN 21 pg (25-35); MEAN CORPUSCULAR HGB CONC 32 g/dL (31-37); MEAN CORPUSCULAR VOLUME 66 fL (79-100); MONO % 8 % (0-9); NEUT # 9.2 x10^3uL (1.8-7.7); NEUT % 77 % (31-73); PLATELET COUNT 174 x10^3/uL (140-400); RED BLOOD COUNT 6.15 x10^6/uL (4.30-5.70); RED CELL DISTRIBUTION WIDTH 16.5 % (11.5-14.5)
[2021-06-17 17:32] LABS: CALCIUM 9.5 mg/dL (8.5-10.1); CREATININE 1.1 mg/dL (0.7-1.3); GFR 86.4; POTASSIUM 4.1 mmol/L (3.5-5.1)
[2021-06-17 17:36] LABS: ALBUMIN 4.2 g/dL (3.4-5.0); ALBUMIN/GLOBULIN RATIO 1.2 (1.0-1.7); TOTAL BILIRUBIN 0.6 mg/dL (0.2-1.0); TOTAL PROTEIN 7.6 g/dL (6.4-8.2)
--- NOTE | 2021-06-17 17:46 | RAD ---
INDICATION: Reason: Left flank pain into bladder / Spl. Instructions: / History: COMPARISON: None. TECHNIQUE: Axial CT images were obtained through the abdomen and pelvis without intravenous contrast. One or more of the following individualized dose reduction techniques were utilized for this examinat ion: 1. Automated exposure control; 2. Adjustment of the mA and/or kV according to patient size; 3 . Use of iterative reconstruction technique. FINDINGS: Linear opacity left lower lung which could be seen with scarring or atelectasis. Vascular: No abdominal aortic aneurysm. Hepatobiliary: Liver is prominent in size. No intrahepatic bile duct dilation. Pancreas: No peripancreatic edema. Spleen: Spleen unremarkable. Renal/Bladder: Urinary bladder wall is thickened with indistinctness of fat in region. No significant hydronephrosis. Gastrointestinal: There is apparent wall thickening of the stomach. Fat-containing inguinal hernias. No periappendiceal inflammatory changes. Laxity of the anterior abdominal wall near umbilicus. Degenerative changes of the spine. Multilevel central canal and neural foraminal stenosis. IMPRESSION: * Wall thickening of the urinary bladder with adjacent haziness to the fat. Would correlate with sy mptoms and cystitis could have this appearance. Follow-up could be obtained to ensure this appropriat cosme resolves to exclude any persistent mass of the bladder wall given the thickening. * There is also wall thickening of a portion of the stomach. Could be from a region of contraction b ut gastritis or stomach wall mass is not excluded. Correlate with symptoms. Electronically signed by: El Moody MD (06/17/2021 5:43 PM) [id number]
--- NOTE | 2021-06-17 17:51 | PHYS DOC ---
Past History Past Medical History: Anemia, Constipation, Diabetes, GERD, High Cholesterol, Hypertension, IBS, Other Additional Past Medical Histor: NEUROPATHY, H-pyloric Past Surgical History: Other Additional Past Surgical Histo: THYROID Alcohol Use: None General Adult EDM: Chief Complaint: FLANK PAIN HPI: HPI: Patient is a 50-year-old male who presents with bilateral flank pain for 2 days. Patient is also reporting frequency and blood in his urine. Denies vomiting but reports nausea. Denies fevers. History of anemia, diabetes, hypertension, hyperlipidemia. Review of Systems: Review of Systems: ROS At least 10 ROS systems have been reviewed and are negative except as documented in the HPI. General: Negative except as outlined in HPI above. Skin: Negative except as outlined in HPI above. HEENT: Negative except as outlined in HPI above. Neck: Negative except as outlined in HPI above. Respiratory: Negative except as outlined in HPI above.. Cardiovascular: Negative except as outlined in HPI above. Abdomen: Negative except as outlined in HPI above. : Negative except as outlined in HPI above. Back/MSK: Negative except as outlined in HPI above. Neuro: Negative except as outlined in HPI above. Psych: Negative except as outlined in HPI above. Current Medications: Current Meds: Current Medications Medications (Trade) Dose Ordered Sig/Bogdan Start Time Stop Time Status Last Admin Dose Admin Ketorolac Tromethamine (Toradol 15mg Vial) 15 mg 1X ONCE 06/17/21 17:45 06/17/21 17:46 UNV Allergies: Allergies: Allergies Coded Allergies Type Severity Reaction Last Updated Verified No Known Drug Allergies 04/27/19 No Physical Exam: PE: Constitutional: Well developed, well nourished, no acute distress, non-toxic appearance. HENT: bilateral external ears normal, oropharynx moist, no oral exudates, nose normal. Eyes: conjunctiva normal, no discharge. Neck: Normal range of motion, no tenderness, supple Cardiovascular:Heart rate regular rhythm, no murmur Lungs & Thorax: Bilateral breath sounds clear to auscultation Abdomen: Bowel sounds normal, soft, no tenderness, no masses Skin: Warm, dry, no erythema, no rash. Back: No tenderness, no CVA tenderness. Extremities: No tenderness, no cyanosis, no clubbing, ROM intact, no edema. Neurologic: Alert and oriented X 3, normal motor function, normal sensory function, no focal deficits noted. Psychologic: Affect normal, judgement normal, mood normal. [] Current Patient Data: Labs: Laboratory Tests Test 06/17/21 15:43 06/17/21 17:02 Urine Collection Type Unknown Urine Color Red Urine Clarity Turbid Urine pH Urine Specific Dexter Urine Protein (NEG-TRACE) Urine Glucose (UA) mg/dL (NEG) Urine Ketones (Stick) mg/dL (NEG) Urine Blood (NEG) Urine Nitrite (NEG) Urine Bilirubin (NEG) Urine Urobilinogen Dipstick mg/dL (0.2 mg/dL) Urine Leukocyte Esterase (NEG) Urine RBC Tntc /HPF (0-2) Urine WBC 11-20 /HPF (0-4) Urine Bacteria 0 /HPF (0-FEW) White Blood Count 12.0 x10^3/uL (4.0-11.0) H Red Blood Count 6.15 x10^6/uL (4.30-5.70) H Hemoglobin 12.8 g/dL (13.0-17.5) L Hematocrit 40.6 % (39.0-53.0) Mean Corpuscular Volume 66 fL (79-100) L Mean Corpuscular Hemoglobin 21 pg (25-35) L Mean Corpuscular Hemoglobin Concent 32 g/dL (31-37) Red Cell Distribution Width 16.5 % (11.5-14.5) H Platelet Count 174 x10^3/uL (140-400) Neutrophils (%) (Auto) 77 % (31-73) H Lymphocytes (%) (Auto) 14 % (24-48) L Monocytes (%) (Auto) 8 % (0-9) Eosinophils (%) (Auto) 1 % (0-3) Basophils (%) (Auto) 1 % (0-3) Neutrophils # (Auto) 9.2 x10^3uL (1.8-7.7) H Lymphocytes # (Auto) 1.6 x10^3/uL (1.0-4.8) Monocytes # (Auto) 1.0 x10^3/uL (0.0-1.1) Eosinophils # (Auto) 0.1 x10^3/uL (0.0-0.7) Basophils # (Auto) 0.1 x10^3/uL (0.0-0.2) Platelet Estimate Pending Sodium Level 137 mmol/L (136-145) Potassium Level 4.1 mmol/L (3.5-5.1) Chloride Level 100 mmol/L (98-107) Carbon Dioxide Level 29 mmol/L (21-32) Anion Gap 8 (6-14) Blood Urea Nitrogen 6 mg/dL (8-26) L Creatinine 1.1 mg/dL (0.7-1.3) Estimated GFR (Cockcroft-Gault) 86.4 BUN/Creatinine Ratio 5 (6-20) L Glucose Level 138 mg/dL (70-99) H Calcium Level 9.5 mg/dL (8.5-10.1) Total Bilirubin 0.6 mg/dL (0.2-1.0) Aspartate Amino Transferase (AST) 24 U/L (15-37) Alanine Aminotransferase (ALT) 61 U/L (16-63) Alkaline Phosphatase 96 U/L (46-116) Total Protein 7.6 g/dL (6.4-8.2) Albumin 4.2 g/dL (3.4-5.0) Albumin/Globulin Ratio 1.2 (1.0-1.7) Lipase 90 U/L (73-393) Vital Signs: Vital Signs Date Time Temp Pulse Resp B/P (MAP) Pulse Ox O2 Delivery O2 Flow Rate FiO2 06/17/21 15:53 98.2 106 16 132/84 (100) 98 Room Air EKG: EKG: [] Radiology/Procedures: Radiology/Procedures: []INDICATION: Reason: Left flank pain into bladder / Spl. Instructions: / History: COMPARISON: None. TECHNIQUE: Axial CT images were obtained through the abdomen and pelvis without intravenous contrast. One or more of the following individualized dose reduction techniques were utilized for this examination: 1. Automated exposure control; 2. Adjustment of the mA and/or kV according to patient size; 3. Use of iterative reconstruction technique. FINDINGS: Linear opacity left lower lung which could be seen with scarring or atelectasis. Vascular: No abdominal aortic aneurysm. Hepatobiliary: Liver is prominent in size. No intrahepatic bile duct dilation. Pancreas: No peripancreatic edema. Spleen: Spleen unremarkable. Renal/Bladder: Urinary bladder wall is thickened with indistinctness of fat in region. No significant hydronephrosis. Gastrointestinal: There is apparent wall thickening of the stomach. Fat- containing inguinal hernias. No periappendiceal inflammatory changes. Laxity of the anterior abdominal wall near umbilicus. Degenerative changes of the spine. Multilevel central canal and neural foraminal stenosis. IMPRESSION: * Wall thickening of the urinary bladder with adjacent haziness to the fat. Would correlate with symptoms and cystitis could have this appearance. Follow-up could be obtained to ensure this appropriately resolves to exclude any persistent mass of the bladder wall given the thickening. * There is also wall thickening of a portion of the stomach. Could be from a region of contraction but gastritis or stomach wall mass is not excluded. Correlate with symptoms. Electronically signed by: El Moody MD (06/17/2021 5:43 PM) [id number] Heart Score: C/O Chest Pain: No Risk Factors: Risk Factors: DM, Current or recent (<one month) smoker, HTN, HLP, family history of CAD, obesity. Risk Scores: Score 0 - 3: 2.5% MACE over next 6 weeks - Discharge Home Score 4 - 6: 20.3% MACE over next 6 weeks - Admit for Clinical Observation Score 7 - 10: 72.7% MACE over next 6 weeks - Early Invasive Strategies Course & Med Decision Making: Course & Med Decision Making Pertinent Labs and Imaging studies reviewed. (See chart for details) [] 50-year-old male presents with bilateral flank pain for 2 days. Hematuria and urgency. Afebrile Work-up in ER consisted of CBC, CMP, urinalysis. Urinalysis is positive for blood. CT abdomen pelvis ordered to rule out kidney stone. Patient's pain treated in the ER. Patient given NS bolus. After fluids are administered, bladder scan completed to rule out retention. Patient given follow-up contact info for urology. Patient will need to follow- up for further management and recommendation. Sending patient home with antibiotics. Patient is appreciative and okay with discharge plan. Silvia Disclaimer: Silvia Disclaimer: This electronic medical record was generated, in whole or in part, using a voice recognition dictation system. Departure Departure: Impression: Primary Impression: Hematuria Qualified Codes: R31.9 - Hematuria, unspecified Disposition: HOME / SELF CARE / HOMELESS Condition: STABLE Referrals: ELLIE GLEASON MD (PCP) Patient Instructions: Hematuria, Adult Additional Instructions: You were seen in the emergency room for blood in your urine and frequency. Your urine was positive for blood. CT of your abdomen pelvis suggested possible cystitis. CT results were not clear so follow-up with urology is imperative. Ibuprofen and Tylenol at home if you have discomfort. I am sending you home with an antibiotic as well. Return to the emergency room if you have worsening symptoms or concerns. EMERGENCY DEPARTMENT GENERAL DISCHARGE INSTRUCTIONS Thank you for coming to [facility] (ED) today and trusting us with you care. We trust that you had a positivie experience in our Emergency Department. If you wish to speak to the department management, you may call the director at [phone]. YOUR FOLLOW UP INSTRUCTIONS ARE FOLLOWS: 1. Do you have a private Doctor? If you do not have a private doctor, please ask for a resource list of physicians or clinics that may be able to assist you with follow up care. 2. The Emergency Physician has interpreted your x-rays. The X-Ray specialist will also review them. If there is a change in the findings, you will be notified in 48 hours when at all possible. 3. A lab test or culture has been done, your results will be reviewed and you will be notified if you need a change in treatment. ADDITIONAL INSTRUCTIONS AND INFORMATION: 1. Your care today has been supervised by a physician who is specially trained in emergency care. Many problems require more than one evaluation for a complete diagnosis and treatment. We recommend that you schedule your follow up appointment as recommended to ensure complete treatment of you illness or injury. If you are unable to obtain follow up care and continue to have a problem, or if your condition worsens, we recommend that you return to the ED. 2. We are not able to safely determine your condition over the phone nor are we able to give sound medical advice over the phone. For these safety reasons, if you call for medical advice we will ask you to come to the ED for further evaluation. 3. If you have any questions regarding these discharge instructions please call the ED at [phone]. SAFETY INFORMATION: In the interest of safety, wellness, and injury prevention; we encourage you to wear your sealbelt, if you smoke; quite smoking, and we encourage family to use a protective helmet for bicycling and other sporting events that present an increased risk for head injury. IF YOUR SYMPTOMS WORSEN OR NEW SYMPTOMS DEVELOP, OR YOU HAVE CONCERNS ABOUT YOUR CONDITION; OR IF YOUR CONDITION WORSENS WHILE YOU ARE WAITING FOR YOUR FOLLOW UP APPOINTMENT; EITHER CONTACT YOUR PRIMARY CARE DOCTOR, THE PHYSICIAN WHOSE NAME AND NUMBER YOU WERE GIVEN, OR RETURN TO THE ED IMMEDIATELY. Scripts Levofloxacin (LEVOFLOXACIN) 750 Mg Tablet 750 MG PO DAILY for uti for 6 Days, #6 TAB Prov: CE ALMAZAN APRN 06/17/21 CE ALMAZAN APRN Jun 17, 2021 17:51
[2021-06-17 20:29] VITALS: BP 112/62
[2021-06-17 20:58] LABS: ANISOCYTOSIS MARKED; HYPOCHROMIA MOD
[2021-06-17 21:01] LABS: PLT ESTIMATE ADEQUATE (ADEQUATE)
== END | disposition home or self-care (01) ==
LOC: ER 15:39
DX: R31.9 Hematuria, unspecified (principal); R35.0 Frequency of micturition; R10.9 Unspecified abdominal pain; E11.40 Type 2 diabetes mellitus with diabetic neuropathy, unspecified; E78.00 Pure hypercholesterolemia, unspecified; I10 Essential (primary) hypertension; K21.9 Gastro-esophageal reflux disease without esophagitis; Z86.2 Personal history of diseases of the blood and blood-forming organs and certain disorders involving the immune mechanism
CPT/HCPCS: 36415; 74176; 80053; 81001; 82947; 83690; 85025; 87086; 96361; 96374; 99284; J1885; J7030